=== PATIENT | female | born 2000 | race African-American/Black ===

== ENCOUNTER 2020-10-30 08:26 | Emergency (ER) | payer MEDICAID, SELFPAY ==
--- NOTE | 2020-10-30 08:38 | ED.GENADULT ---
HPI - General Adult General Chief complaint: General Medical Stated complaint: Pregancy test? Time Seen by Provider: 10/30/20 08:34 Source: patient Mode of arrival: ambulatory Limitations: no limitations History of Present Illness MD complaint: positive test at home Onset (ago): week(s) (in the last week or so) Relieving factors: none Exacerbating factors: none Associated symptoms: nausea/vomiting Treatments prior to arrival: other (taking prenatals at home) Related Data Previous Rx's Medication Instructions Recorded doxylamine succinate 25 mg PO BID PRN #30 tab 10/30/20 pyridoxine (vitamin B6) 25 mg PO BID PRN #30 tab 10/30/20 Allergies Allergy/AdvReac Type Severity Reaction Status Date / Time No Known Allergies Allergy Verified 10/30/20 08:50 Review of Systems Review of Systems: Constitutional : No Fever, No Chills ENT/Mouth : No sore throat, No Rhinorrhea Eyes: No Eye Pain, No Swelling, No Redness Cardiovascular : No Chest Pain, No SOB Respiratory : No Cough, No Sputum, No Wheezing Gastrointestinal : pos Nausea, No Vomiting, no abdominal pain Genitourinary : No Dysuria, No Urinary Frequency, No Hematuria, no bleeding, late on menses Musculoskeletal : No joint pain, No Myalgias, No Joint Swelling Skin : No Skin Lesions, No rash Neuro : No Weakness, No Numbness, No Dizziness, No Headache PMFSH Past Medical History Attestation statement: The following information was validated with the patient. Medical History Heart murmur Social History Social History (Updated 10/30/20 @ 08:58 by Yoli Tomas DO) Patient Tobacco Use Status: Former Tobacco user Advance Directives: No Advance Directives Information Provided: No Physical Exam Vital Signs: Vital Signs: Last Vital Signs Temp 97.6 F 10/30/20 08:48 Pulse 76 10/30/20 08:48 Resp 14 10/30/20 08:48 BP 124/75 10/30/20 08:48 Pulse Ox 100 10/30/20 08:48 Body Mass Index 27.4 Appearance: Alert. Oriented X3. No acute distress. Eyes: Pupils equal, round and reactive to light. ENT: Pharynx normal. Neck: Normal inspection. Neck supple. CVS: Pulses normal. Respiratory: Breath sounds normal. Abdomen: Soft and non-tender. Skin: Skin warm and dry. Normal skin color. Extremities: No lower extremity edema. Neuro: Oriented X 3. No motor deficit. No sensory deficit. Procedures Procedure Narrative Procedure Narrative: limited transabdominal US performed by me - gestational sac seen no pole Medical Decision Making MDM Narrative Medical decision making narrative: 20 yo female pos tests at home - came in with no complaints other than wanted hcg serum testing because there is a family histor of twins, I told he she is very early in her and that one hcg level is not going to provide us more information at this time or dx her with twins, she can follow up with her OBGYN, no bleeding/pain Discharge Plan Discharge Clinical Impression: Early stage of Patient Disposition: Home, Self-Care Instructions: (ED) Additional Instructions: return to ED for any worsening symptoms or concerns please call your OBGYN Prescriptions: New pyridoxine (vitamin B6) 25 mg tablet 25 mg PO BID PRN (Reason: nausea and vomiting) Qty: 30 RF: 0 doxylamine succinate 25 mg tablet 25 mg PO BID PRN (Reason: nausea and vomiting) Qty: 30 RF: 0
[2020-10-30 08:48] VITALS: BP 124/75; PULSE 76; RESP 14; TEMP 36.4; O2SAT 100; BMI 27.4
[2020-10-30 08:59] LABS: UPreg QC Valid YES; Urine Pregnancy POSITIVE (NEGATIVE)
[2020-10-30 09:13] LABS: Appearance Urine HAZY; Color Urine YELLOW; Glucose Urine UA NEG (NEG); Leukocyte Esterase Urine NEG (NEG); Nitrite Urine NEG (NEG); Specific Gravity - Urine 1.025 (1.005-1.025); Urine Blood NEG (NEG); Urine Ketones NEG (NEG); Urine Protein NEG (NEG-TRACE)
== END 2020-10-30 09:21 | disposition home or self-care (01) ==
PROVIDERS: Emergency Provider Emergency Medicine
DX: Z32.01 Encounter for pregnancy test, result positive (principal)
CPT/HCPCS: 81003; 81025; 99283

== ENCOUNTER 2021-01-18 05:56 | Emergency (ER) | payer MEDICAID, SELFPAY ==
[2021-01-18 06:10] VITALS: BP 130/89; PULSE 93; RESP 16; TEMP 36.7; O2SAT 99; BMI 27.4
== END 2021-01-18 06:45 | disposition left against medical advice (07) ==
PROVIDERS: Emergency Provider Emergency Medicine
DX: M54.50 Low back pain, unspecified (principal)
CPT/HCPCS: 99281; 99282

== ENCOUNTER 2021-06-01 09:20 | Emergency (ER) | payer MEDICAID, SELFPAY ==
--- NOTE | ~2021-06-01 | US_ITS ---
EXAMINATION: US PELVIS TRANSVAGINAL CLINICAL INFORMATION: Pain and bleeding COMPARISON: October 02, 2019 TECHNIQUE: Transcutaneous and transvaginal pelvic ultrasound. Transvaginal scanning was performed after voiding to better evaluate the endometrium and adnexa. FINDINGS: Patient had difficulty tolerating the transvaginal exam due to pain. Right ovary could not be seen transvaginally. The uterus measures 7.6 x 3.8 x 5.8 cm. The uterus is anteverted and anteflexed.. No suspicious abnormalities region of the cervix. The uterine contour is smooth. The endometrium measures 0.8 cm. No focal abnormalities within the myometrium. The right ovary measures approximately 2.7 x 1.1 x 1.9 cm. The calculated right ovarian volume is approximately 3.0 mL. No right adnexal abnormality appreciated. The left ovary measures 2.8 x 1.4 x 1.5 cm. The calculated left ovarian volume is approximately 3.1 mL. No left adnexal abnormality appreciated No significant free pelvic fluid. US/US pelvic and transvaginal IMPRESSION: No significant abnormality appreciated on pelvic ultrasound study.
[2021-06-01 09:34] VITALS: BP 148/82; PULSE 86; RESP 16; TEMP 36.6; O2SAT 99; BMI 27.9
--- NOTE | 2021-06-01 09:58 | ED.ABDPAIN ---
HPI - Abdominal Pain General Chief Complaint: Abdominal Pain Stated Complaint: abd pain Time Seen by Provider: 06/01/21 09:46 Source: patient Mode of arrival: ambulatory Limitations: no limitations History of Present Illness MD elicited complaint: abdominal pain (pelvic pain and vaginal bleeding) Pertinent past history: none Onset (ago): day(s) (Sunday night) Pain Consistency: intermittent Location: pelvis Severity: moderate Quality: cramping Radiation: none Migration to: no migration Exacerbating factors: nothing Relieving factors: nothing Context: other (LMP end of April and started bleeding again - she notes has had hx of intermittent bleeding in the past has not seen OBGYN) Associated symptoms: nausea Related Data Previous Rx's Medication Instructions Recorded doxylamine succinate 25 mg tablet 25 mg PO BID PRN #30 tab 10/30/20 pyridoxine (vitamin B6) 25 mg 25 mg PO BID PRN #30 tab 10/30/20 tablet Allergies Allergy/AdvReac Type Severity Reaction Status Date / Time No Known Allergies Allergy Verified 01/18/21 06:10 Review of Systems Review of Systems Constitutional : No Fever, No Chills ENT/Mouth : No sore throat, No Rhinorrhea Eyes: No Eye Pain, No Redness Cardiovascular : No Chest Pain, No SOB Respiratory : No Cough, No Sputum, No Wheezing Gastrointestinal : positive Nausea, No Vomiting, No Diarrhea, positive abdominal pain, Genitourinary : positive irregular bleeding, No Dysuria, No Urinary Frequency, positive pelvic pain Musculoskeletal : No Myalgias Skin : No rash Neuro : No Weakness, No Headache Psych : No Anxiety/Panic, No Depression Heme/Lymph: No bruising, No Lymphadenopathy Endocrine : No Polyuria, No Polydipsia All other systems reviewed and are negative [facility] Past Medical History Attestation statement: The following information was validated with the patient. Medical History Heart murmur Miscarriage Social History Social History Patient Tobacco Use Status: Former Tobacco user Advance Directives: No Advance Directives Information Provided: No Physical Exam ED Vital Signs: Vital Signs - 24 hr 06/01/21 09:34 06/01/21 12:12 06/01/21 13:29 Temperature 98 F 98.9 F 98.9 F Pulse Rate 86 76 71 Respiratory Rate 16 14 16 Blood Pressure 148/82 H 124/74 117/72 Pulse Oximetry 99 100 100 BMI result Body Mass Index 27.9 Appearance: Alert. Oriented X3. No acute distress. Anxious Eyes: Pupils equal, round and reactive to light. ENT: Pharynx normal. Neck: Normal inspection. Neck supple. CVS: Normal heart rate and rhythm. Pulses normal. Respiratory: No respiratory distress. Breath sounds normal. Abdomen: Soft and nontender. : patient declines pelvic exam no bleeding here Skin: Skin warm and dry. Normal skin color. Normal skin turgor. Extremities: No lower extremity edema. No calf ttp Neuro: Oriented X 3. No motor deficit. No sensory deficit. Course Course Course Narrative: H/H stable US normal MDM - Abdominal Pain MDM Narrative Medical decision making narrative: 21 yo female here with c/o pelvic pain and vag bleeding since Sunday at this time she denies OCP use, no vaginal trauma notes this has happened at times since a miscarriage in summer of 2020 - at this time she will need labs, hcg, UA, US to evaluate uterus, IVF and IV ativan - she is very anxious. Dispo per results and findings. Lab Data Result diagrams: 06/01/21 10:06 06/01/21 10:06 Labs: Lab Results 06/01/21 06/01/21 06/01/21 Range/Units 10:06 10:06 10:06 WBC 4.1 L (4.8-10.8) X10*3/uL RBC 4.71 (4.20-5.50) X10*6/uL Hgb 14.4 (12.0-16.0) g/dl Hct 42.2 (37.0-47.0) % MCV 89.6 (80.0-98.0) fL MCH 30.6 (27.0-33.0) pg MCHC 34.1 (31.0-35.0) g/dl RDW 12.1 (11.0-16.0) % Plt Count 320 (160-400) X10*3/uL MPV 9.1 L (9.4-12.3) fL Immature Gran % (Auto) 0.2 (0.0-0.4) % Neut % (Auto) 55.9 (45-73) % Lymph % (Auto) 35.3 (20-40) % [place] % (Auto) 7.7 (2-11) % Eos % (Auto) 0.2 (0-4) % Baso % (Auto) 0.7 (0-2) % Lymph # (Auto) 1.5 (1.2-4.9) X10*3/uL [place] # (Auto) 0.3 (0.1-1.2) X10*3/uL Eos # (Auto) 0.0 (0.0-0.4) X10*3/uL Baso # (Auto) 0.0 (0.0-0.2) X10*3/uL Abs Immat Gran (auto) 0.01 (0.00-0.03) X10*3/uL Absolute Neuts (auto) 2.3 (2.0-8.3) x10*3/uL Absolute Nucleated RBC 0.000 (0.0-0.012) X10*3/uL Nucleated RBC % (auto) 0.0 (0.0-0.2) /100WBC PT 12.5 (9.9-13.0) SEC INR 1.1 (0.9-1.1) Sodium 137 (135-145) mmol/L Potassium 4.2 (3.3-5.1) mmol/L Chloride 107 (96-108) mmol/L Carbon Dioxide 24 (22-29) mmol/L Anion Gap 10 L (12-20) BUN 10 (9-16) mg/dL Creatinine 0.78 (0.5-1.4) mg/dL Estim Creat Clear Calc 110.3 Estimated GFR > 60 Random Glucose 86 (60-115) mg/dL Calcium 10.0 (8.4-10.2) mg/dL Magnesium 2.1 (1.6-2.6) mg/dL Total Bilirubin 1.1 H (0.0-1.0) mg/dL Direct Bilirubin 0.4 (0.0-0.5) mg/dL AST 21 (5-31) U/L ALT 8 (0-31) U/L Alkaline Phosphatase 60 (39-117) U/L Total Protein 8.1 H (6.5-8.0) g/dL Albumin 4.6 (3.5-5.0) g/dL Beta HCG, Quant < 2 mIU/mL Urine Color Urine Appearance Urine pH (5.0-8.0) Ur Specific [place] (1.005-1.025) Urine Protein (NEG-TRACE) MG/DL Urine Glucose (UA) (NEG) MG/DL Urine Ketones (NEG) MG/DL Urine Blood (NEG) Urine Nitrite (NEG) Ur Leukocyte Esterase (NEG) Urine RBC (0) /HPF Urine WBC (0-4) /HPF Ur Squamous Epith Cells /LPF Urine Bacteria /LPF Blood Type 06/01/21 06/01/21 Range/Units 10:06 11:20 WBC (4.8-10.8) X10*3/uL RBC (4.20-5.50) X10*6/uL Hgb (12.0-16.0) g/dl Hct (37.0-47.0) % MCV (80.0-98.0) fL MCH (27.0-33.0) pg MCHC (31.0-35.0) g/dl RDW (11.0-16.0) % Plt Count (160-400) X10*3/uL MPV (9.4-12.3) fL Immature Gran % (Auto) (0.0-0.4) % Neut % (Auto) (45-73) % Lymph % (Auto) (20-40) % [place] % (Auto) (2-11) % Eos % (Auto) (0-4) % Baso % (Auto) (0-2) % Lymph # (Auto) (1.2-4.9) X10*3/uL [place] # (Auto) (0.1-1.2) X10*3/uL Eos # (Auto) (0.0-0.4) X10*3/uL Baso # (Auto) (0.0-0.2) X10*3/uL Abs Immat Gran (auto) (0.00-0.03) X10*3/uL Absolute Neuts (auto) (2.0-8.3) x10*3/uL Absolute Nucleated RBC (0.0-0.012) X10*3/uL Nucleated RBC % (auto) (0.0-0.2) /100WBC PT (9.9-13.0) SEC INR (0.9-1.1) Sodium (135-145) mmol/L Potassium (3.3-5.1) mmol/L Chloride (96-108) mmol/L Carbon Dioxide (22-29) mmol/L Anion Gap (12-20) BUN (9-16) mg/dL Creatinine (0.5-1.4) mg/dL Estim Creat Clear Calc Estimated GFR Random Glucose (60-115) mg/dL Calcium (8.4-10.2) mg/dL Magnesium (1.6-2.6) mg/dL Total Bilirubin (0.0-1.0) mg/dL Direct Bilirubin (0.0-0.5) mg/dL AST (5-31) U/L ALT (0-31) U/L Alkaline Phosphatase (39-117) U/L Total Protein (6.5-8.0) g/dL Albumin (3.5-5.0) g/dL Beta HCG, Quant mIU/mL Urine Color HEDY Urine Appearance CLOUDY Urine pH 5.0 (5.0-8.0) Ur Specific [place] 1.015 (1.005-1.025) Urine Protein 1+ H (NEG-TRACE) MG/DL Urine Glucose (UA) NEG (NEG) MG/DL Urine Ketones 5 (NEG) MG/DL Urine Blood 3+ H (NEG) Urine Nitrite NEG (NEG) Ur Leukocyte Esterase NEG (NEG) Urine RBC TNTC H (0) /HPF Urine WBC 0-2 (0-4) /HPF Ur Squamous Epith Cells 2+ /LPF Urine Bacteria TRACE /LPF Blood Type O Positive Discharge Plan Discharge Clinical Impression: Abnormal vaginal bleeding Patient Disposition: Home, Self-Care Instructions: Dysfunctional Uterine Bleeding (ED) Additional Instructions: return to ED for any worsening symptoms or concerns US normal labs stable The uterus measures 7.6 x 3.8 x 5.8 cm. The uterus is anteverted and anteflexed.. No suspicious abnormalities region of the cervix. The uterine contour is smooth. The endometrium measures 0.8 cm. No focal abnormalities within the myometrium. The right ovary measures approximately 2.7 x 1.1 x 1.9 cm. The calculated right ovarian volume is approximately 3.0 mL. No right adnexal abnormality appreciated. The left ovary measures 2.8 x 1.4 x 1.5 cm. The calculated left ovarian volume is approximately 3.1 mL. No left adnexal abnormality appreciated No significant free pelvic fluid. US/US pelvic and transvaginal IMPRESSION: No significant abnormality appreciated on pelvic ultrasound study. Prescriptions: No Action pyridoxine (vitamin B6) 25 mg tablet 25 mg PO BID PRN (Reason: nausea and vomiting) Qty: 30 0RF doxylamine succinate 25 mg tablet 25 mg PO BID PRN (Reason: nausea and vomiting) Qty: 30 0RF Referrals: Bruno Osborn MD [Physician] - 1 week Stand Alone Forms: Work/School Release
[2021-06-01] MEDS: ondansetron HCL 4 MG/2 ML VIAL IVPUSH (10:09)
[2021-06-01] MEDS: LORazepam 2 MG/ML VIAL 0.5 MG IVPUSH (10:09)
[2021-06-01] MEDS: 0.9 % Sodium Chloride 1,000 ML 999 ML IVCONT (10:10)
[2021-06-01 10:13] LABS: MANUAL DIFF FLAG NO
[2021-06-01 10:16] LABS: Appearance Urine CLOUDY; Basophils Percent Auto 0.7 % (0-2); Eosinophils Percent Auto 0.2 % (0-4); Glucose Urine UA NEG (NEG); Hematocrit 42.2 % (37.0-47.0); Hemoglobin 14.4 g/dl (12.0-16.0); Imm Gran Abs Auto 0.01 X10*3/uL (0.00-0.03); Imm Gran Pct Auto 0.2 % (0.0-0.4); Leukocyte Esterase Urine NEG (NEG); Lymphocytes Absolute Auto 1.5 X10*3/uL (1.2-4.9); Lymphocytes Percent Auto 35.3 % (20-40); Mean Corpuscular HGB Conc 34.1 g/dl (31.0-35.0); Mean Corpuscular Hemoglobin 30.6 pg (27.0-33.0); Mean Corpuscular Volume 89.6 fL (80.0-98.0); Mean Platelet Volume 9.1 fL (9.4-12.3); Monocytes Absolute Auto 0.3 X10*3/uL (0.1-1.2); Monocytes Percent Auto 7.7 % (2-11); Neutrophils Absolute Auto 2.3 x10*3/uL (2.0-8.3); Neutrophils Percent Auto 55.9 % (45-73); Nitrite Urine NEG (NEG); Platelet Count 320 X10*3/uL (160-400); Red Blood Count 4.71 X10*6/uL (4.20-5.50); Red Cell Distribution Width 12.1 % (11.0-16.0); Specific Gravity - Urine 1.015 (1.005-1.025); UACC Culture Trigger NO; Urine Blood 3+ (NEG); Urine Ketones 5 MG/DL (NEG); Urine Protein 1+ MG/DL (NEG-TRACE); White Blood Count 4.1 X10*3/uL (4.8-10.8)
[2021-06-01 10:17] LABS: Color Urine AMBER
[2021-06-01 10:20] LABS: INTERNATIONAL NORM RATIO 1.1 (0.9-1.1); Prothrombin Time 12.5 SEC (9.9-13.0)
[2021-06-01 10:22] LABS: RBC Urine TNTC /HPF (0); Squamous Epithelial Cell Urine 2+ /LPF; WBC Urine 0-2 /HPF (0-4)
[2021-06-01 10:23] LABS: Bacteria Urine TRACE /LPF
[2021-06-01 10:34] LABS: Alanine Aminotransferase 8 U/L (0-31); Albumin Level 4.6 g/dL (3.5-5.0); Alkaline Phosphatase 60 U/L (39-117); Anion Gap 10 (12-20); Aspartate Amino Transferase 21 U/L (5-31); Bilirubin Direct 0.4 mg/dL (0.0-0.5); Bilirubin Total 1.1 mg/dL (0.0-1.0); Blood Urea Nitrogen 10 mg/dL (9-16); Carbon Dioxide 24 mmol/L (22-29); Chloride 107 mmol/L (96-108); Creatinine Clr Calc Pharmacy 110.3; Estimated Glomerular Filt Rate > 60; Glucose Random 86 mg/dL (60-115); Magnesium 2.1 mg/dL (1.6-2.6); Potassium 4.2 mmol/L (3.3-5.1); Sodium 137 mmol/L (135-145); Total Protein 8.1 g/dL (6.5-8.0)
[2021-06-01 10:41] LABS: HCG Quantitative < 2 mIU/mL
[2021-06-01 12:12] VITALS: BP 124/74; PULSE 76; RESP 14; TEMP 37.2; O2SAT 100
[2021-06-01 13:29] VITALS: BP 117/72; PULSE 71; RESP 16; TEMP 37.2; O2SAT 100
== END 2021-06-01 13:56 | disposition home or self-care (01) ==
PROVIDERS: Emergency Provider Emergency Medicine
DX: N93.9 Abnormal uterine and vaginal bleeding, unspecified (principal); R10.9 Unspecified abdominal pain
CPT/HCPCS: 36415; 76830; 76856; 80048; 80076; 81001; 83735; 84702; 85025; 85610; 86900; 86901; 96361; 96374; 96375; 99284; J2060; J2405

== ENCOUNTER 2021-09-02 07:16 | Emergency (ER) | payer MEDICAID, SELFPAY ==
[2021-09-02 07:38] VITALS: BP 109/72; PULSE 70; RESP 18; TEMP 36.5; O2SAT 98; BMI 25.2
[2021-09-02 08:09] VITALS: BP 112/73; PULSE 94; RESP 16; O2SAT 100
--- NOTE | 2021-09-02 08:10 | ED.GENADULT ---
HPI - General Adult General Chief complaint: Abdominal Pain Stated complaint: Abd pain Time Seen by Provider: 09/02/21 08:10 Source: patient Mode of arrival: ambulatory Limitations: no limitations History of Present Illness HPI narrative: Patient is a 21 year old female presenting to the emergency department today with generalized abdominal pain. Patient states that she is having a cramping type pain across her abdomen. Patient denies any vaginal bleeding, vaginal discharge, dizziness, lightheadedness, vomiting, fever, chills, blurry vision, double vision, loss of vision, chest pain, difficulty breathing, shortness of breath, back pain, night sweats, pain with urination, increased urinary frequency, increased urinary urgency, blood in her urine or stool, syncope or a near syncopal episode, recent trauma or falls, bowel incontinence, bladder incontinence, bowel retention, bladder retention, or any other complaints at this time. Onset (ago): day(s) Location: abdomen Radiation: non-radiation Severity: mild Severity scale (1-10): 2 Quality: dull Pain Consistency: constant Relieving factors: none Exacerbating factors: none Associated symptoms: nausea/vomiting Treatments prior to arrival: none Related Data Previous Rx's Medication Instructions Recorded doxylamine succinate 25 mg tablet 25 mg PO BID PRN #30 tab 10/30/20 pyridoxine (vitamin B6) 25 mg 25 mg PO BID PRN #30 tab 10/30/20 tablet acetaminophen 500 mg tablet 500 mg PO Q6H PRN #30 tab 09/02/21 (Tylenol Extra Strength) Allergies Allergy/AdvReac Type Severity Reaction Status Date / Time No Known Allergies Allergy Verified 01/18/21 06:10 Review of Systems Constitutional: Constitutional: Reports no additional constitutional complaints, Denies chills, Denies fever(s) and Denies night sweats Eyes: Eyes: Reports no additional eye complaints, Denies blurry vision, Denies change in vision, Denies diplopia, Denies eye discharge, Denies loss of vision and Denies eye pain ENT: Denies dizziness Cardiovascular: Cardiovascular: Reports no additional cardiovascular complaints, Denies chest pain, Denies lightheadedness, Denies Loss of Consciousness and Denies dyspnea Respiratory: Respiratory: Reports no additional respiratory complaints and Denies dyspnea Gastrointestinal: Gastrointestinal: Reports no additional gastrointestinal complaints, Reports abdominal pain, Denies melena, Denies hematochezia, Denies change in bowel habits and Denies change in stool character Genitourinary: Genitourinary: Denies hematuria, Denies urinary frequency, Denies dysuria, Denies urinary incontinence, Denies urinary hesitancy and Denies urinary urgency Musculoskeletal: Musculoskeletal: Reports no additional musculoskeletal complaints, Denies numbness and Denies tingling Neurologic: Denies dizziness, Denies loss of vision, Denies numbness and Denies tingling Psychiatric: Psychiatric: Reports no additional psychiatric complaints Endocrine: Endocrine: Reports no additional endocrine complaints Hematologic/Lymphatic: Hematologic/Lymphatic: Reports no additional hematologic/lymphatic complaints Allergic/Immunologic: Allergic/Immunologic: Reports no additional allergic/immunologic complaints PMFSH Past Medical History Attestation statement: The following information was validated with the patient. Source: old records reviewed Medical History Heart murmur Miscarriage Social History Social History Patient Tobacco Use Status: Former Tobacco user Advance Directives: No Advance Directives Information Provided: No Physical Exam ED Vital Signs: Vital Signs - 24 hr 09/02/21 07:38 09/02/21 08:09 09/02/21 10:03 Temperature 97.7 F 98.8 F Pulse Rate 70 94 Respiratory Rate 18 16 16 Blood Pressure 109/72 112/73 121/73 Pulse Oximetry 98 100 100 BMI result Body Mass Index 25.2 Const General: cooperative, no acute distress, alert and awake Nutritional Appearance: well nourished Orientation/consciousness: patient oriented x3 Limitations: no limitations [facility] Head: Yes normal to inspection and Yes atraumatic Ears: hearing grossly normal bilaterally and external ears normal General nose exam: Normal external nose present, no nasal discharge noted and no epistaxis Face and sinus: Yes normal facial exam, No abrasion and No laceration Mouth: Normal oral and palatal mucosa present, no drooling and no muffled voice Eyes General: appearance normal, both eyes and all related structures Periorbital: periorbital findings normal Eyelids: Yes eyelids normal Conjunctivae: conjunctivae normal Pupils: Equal, round and reactive pupils present EOM: EOMs intact bilaterally Neck Neck: Yes normal visual inspection, Yes full ROM and Yes no lymphadenopathy Chest Chest palpation & inspection: normal inspection of the chest Resp Effort & Inspection: normal respiratory effort and able to speak in complete sentences Auscultation: clear to auscultation bilaterally Cardio Rate: regular rate Rhythm: regular rhythm GI Inspection: Yes normal to inspection Palpation (GI): Soft to palpation, not firm, nontender and no guarding Neuro General: patient oriented x3 and moves all extremities Cranial nerves: Yes Equal, round and reactive pupils present Cognition (Neuro): normal cognition Motor exam (neuro): 5/5 motor strength present throughout Sensory Exam: Normal double simultaneous stimulation for sensation Coordination: [id number] test normal Extrem General: Yes normal to inspection, Yes full ROM and Yes capillary refill normal Psych Appearance: grossly normal Mental Status: mental status grossly normal Affect: normal affect Attitude: cooperative Thought process: Normal thought process present Thought content: Normal thought content present Insight: Good insight present (Psych) Medical Decision Making MDM Narrative Medical decision making narrative: Patient is a 21 year old female presenting to the emergency department today with generalized abdominal pain. Patient's physical exam was unremarkable, including a normal abdominal examination. Patient's blood work was unremarkable. Patient's urine showed no acute process. I explained my physical exam findings as well as all test results to the patient. I answered all questions asked by the patient. I stressed the importance of the patient taking her medication as prescribed. I stressed the importance of the patient following up with her primary care provider and a GI specialist. I stressed the importance of the patient returning to the emergency department immediately if her symptoms were to worsen or if she were to develop any dizziness, shortness of breath, difficulty breathing, chest pain, blurry vision, loss of vision, nausea, vomiting, abdominal pain, fever, chills, back pain, or any other complaints. Patient verbalized agreement and understanding with this treatment plan and discharge. Differential Diagnosis Differential Diagnosis: Gastritis, gastroenteritis, abdominal pain Medical Records Medical records reviewed: Yes I reviewed the patient's medical records. Lab Data Lab results reviewed: Yes I reviewed the patient's lab results. Result diagrams: 09/02/21 08:23 09/02/21 08:23 Labs: Lab Results 09/02/21 09/02/21 09/02/21 Range/Units 08:17 08:17 08:19 WBC (4.8-10.8) X10*3/uL RBC (4.20-5.50) X10*6/uL Hgb (12.0-16.0) g/dl Hct (37.0-47.0) % MCV (80.0-98.0) fL MCH (27.0-33.0) pg MCHC (31.0-35.0) g/dl RDW (11.0-16.0) % Plt Count (160-400) X10*3/uL MPV (9.4-12.3) fL Immature Gran % (Auto) (0.0-0.4) % Neut % (Auto) (45-73) % Lymph % (Auto) (20-40) % [place] % (Auto) (2-11) % Eos % (Auto) (0-4) % Baso % (Auto) (0-2) % Lymph # (Auto) (1.2-4.9) X10*3/uL [place] # (Auto) (0.1-1.2) X10*3/uL Eos # (Auto) (0.0-0.4) X10*3/uL Baso # (Auto) (0.0-0.2) X10*3/uL Abs Immat Gran (auto) (0.00-0.03) X10*3/uL Absolute Neuts (auto) (2.0-8.3) x10*3/uL Absolute Nucleated RBC (0.0-0.012) X10*3/uL Nucleated RBC % (auto) (0.0-0.2) /100WBC Sodium (135-145) mmol/L Potassium (3.3-5.1) mmol/L Chloride (96-108) mmol/L Carbon Dioxide (22-29) mmol/L Anion Gap (12-20) BUN (9-16) mg/dL Creatinine (0.5-1.4) mg/dL Estim Creat Clear Calc Estimated GFR Random Glucose (60-115) mg/dL Calcium (8.4-10.2) mg/dL Total Bilirubin (0.0-1.0) mg/dL AST (5-31) U/L ALT (0-31) U/L Alkaline Phosphatase (39-117) U/L Total Protein (6.5-8.0) g/dL Albumin (3.5-5.0) g/dL Lipase (8-78) U/L Beta HCG, Quant mIU/mL Urine Color YELLOW Urine Appearance HAZY Urine pH 6.0 (5.0-8.0) Ur Specific [place] >= 1.030 H (1.005-1.025) Urine Protein NEG (NEG-TRACE) MG/DL Urine Glucose (UA) NEG (NEG) MG/DL Urine Ketones NEG (NEG) MG/DL Urine Blood NEG (NEG) Urine Nitrite NEG (NEG) Ur Leukocyte Esterase NEG (NEG) COVID-19 (LEAH) Negative (Negative) COVID-19 Clin Com See Note Influenza Type A (LEILA) Negative (Negative) Influenza Type B (LEILA) Negative (Negative) Influenza A & B Note See Note 09/02/21 09/02/21 Range/Units 08:23 08:23 WBC 3.9 L (4.8-10.8) X10*3/uL RBC 4.39 (4.20-5.50) X10*6/uL Hgb 13.3 (12.0-16.0) g/dl Hct 39.6 (37.0-47.0) % MCV 90.2 (80.0-98.0) fL MCH 30.3 (27.0-33.0) pg MCHC 33.6 (31.0-35.0) g/dl RDW 12.1 (11.0-16.0) % Plt Count 253 (160-400) X10*3/uL MPV 9.6 (9.4-12.3) fL Immature Gran % (Auto) 0.5 H (0.0-0.4) % Neut % (Auto) 53.5 (45-73) % Lymph % (Auto) 34.6 (20-40) % [place] % (Auto) 10.1 (2-11) % Eos % (Auto) 0.8 (0-4) % Baso % (Auto) 0.5 (0-2) % Lymph # (Auto) 1.3 (1.2-4.9) X10*3/uL [place] # (Auto) 0.4 (0.1-1.2) X10*3/uL Eos # (Auto) 0.0 (0.0-0.4) X10*3/uL Baso # (Auto) 0.0 (0.0-0.2) X10*3/uL Abs Immat Gran (auto) 0.02 (0.00-0.03) X10*3/uL Absolute Neuts (auto) 2.1 (2.0-8.3) x10*3/uL Absolute Nucleated RBC 0.000 (0.0-0.012) X10*3/uL Nucleated RBC % (auto) 0.0 (0.0-0.2) /100WBC Sodium 136 (135-145) mmol/L Potassium 4.4 (3.3-5.1) mmol/L Chloride 107 (96-108) mmol/L Carbon Dioxide 23 (22-29) mmol/L Anion Gap 10 L (12-20) BUN 10 (9-16) mg/dL Creatinine 0.80 (0.5-1.4) mg/dL Estim Creat Clear Calc 102.7 Estimated GFR > 60 Random Glucose 92 (60-115) mg/dL Calcium 9.2 D (8.4-10.2) mg/dL Total Bilirubin 0.7 (0.0-1.0) mg/dL AST 19 (5-31) U/L ALT 12 (0-31) U/L Alkaline Phosphatase 58 (39-117) U/L Total Protein 7.0 (6.5-8.0) g/dL Albumin 4.0 (3.5-5.0) g/dL Lipase 21 (8-78) U/L Beta HCG, Quant < 2 mIU/mL Urine Color Urine Appearance Urine pH (5.0-8.0) Ur Specific [place] (1.005-1.025) Urine Protein (NEG-TRACE) MG/DL Urine Glucose (UA) (NEG) MG/DL Urine Ketones (NEG) MG/DL Urine Blood (NEG) Urine Nitrite (NEG) Ur Leukocyte Esterase (NEG) COVID-19 (LEAH) (Negative) COVID-19 Clin Com Influenza Type A (LEILA) (Negative) Influenza Type B (LEILA) (Negative) Influenza A & B Note Discharge Plan Discharge Clinical Impression: Gastroenteritis Patient Disposition: Home, Self-Care Instructions: Gastroenteritis (DC) Additional Instructions: Follow up with your primary care provider and a GI specialist. Return to the emergency department immediately if your symptoms worsen or if you develop any dizziness, shortness of breath, difficulty breathing, chest pain, blurry vision, loss of vision, nausea, vomiting, abdominal pain, fever, chills, back pain, or any other complaints. Prescriptions: New acetaminophen [Tylenol Extra Strength] 500 mg tablet 500 mg PO Q6H PRN (Reason: fever or pain) Qty: 30 0RF No Action pyridoxine (vitamin B6) 25 mg tablet 25 mg PO BID PRN (Reason: nausea and vomiting) Qty: 30 0RF doxylamine succinate 25 mg tablet 25 mg PO BID PRN (Reason: nausea and vomiting) Qty: 30 0RF Referrals: [facility] Gastro[facility]ology Services [Provider Group] (Call to schedule with a GI specialist. ) [facility] [place] Family Medicine [Provider Group] (Call to establish with a PCP. If you already have a PCP, follow up with them. ) [facility] [Provider Group] (Call to establish with a PCP. If you already have a PCP, follow up with them. ) [facility] [place] Primary Care,Deshawn [Provider Group] (Call to establish with a PCP. If you already have a PCP, follow up with them. ) Stand Alone Forms: Work/School Release Print Language: Korean
[2021-09-02 08:28] LABS: MANUAL DIFF FLAG NO
[2021-09-02 08:33] LABS: Basophils Percent Auto 0.5 % (0-2); Eosinophils Percent Auto 0.8 % (0-4); Hematocrit 39.6 % (37.0-47.0); Hemoglobin 13.3 g/dl (12.0-16.0); Imm Gran Abs Auto 0.02 X10*3/uL (0.00-0.03); Imm Gran Pct Auto 0.5 % (0.0-0.4); Lymphocytes Absolute Auto 1.3 X10*3/uL (1.2-4.9); Lymphocytes Percent Auto 34.6 % (20-40); Mean Corpuscular HGB Conc 33.6 g/dl (31.0-35.0); Mean Corpuscular Hemoglobin 30.3 pg (27.0-33.0); Mean Corpuscular Volume 90.2 fL (80.0-98.0); Mean Platelet Volume 9.6 fL (9.4-12.3); Monocytes Absolute Auto 0.4 X10*3/uL (0.1-1.2); Monocytes Percent Auto 10.1 % (2-11); Neutrophils Absolute Auto 2.1 x10*3/uL (2.0-8.3); Neutrophils Percent Auto 53.5 % (45-73); Platelet Count 253 X10*3/uL (160-400); Red Blood Count 4.39 X10*6/uL (4.20-5.50); Red Cell Distribution Width 12.1 % (11.0-16.0); White Blood Count 3.9 X10*3/uL (4.8-10.8)
[2021-09-02 08:34] LABS: Appearance Urine HAZY; Color Urine YELLOW; Glucose Urine UA NEG (NEG); Leukocyte Esterase Urine NEG (NEG); Nitrite Urine NEG (NEG); Specific Gravity - Urine >= 1.030 (1.005-1.025); Urine Blood NEG (NEG); Urine Ketones NEG (NEG); Urine Protein NEG (NEG-TRACE)
[2021-09-02 08:43] LABS: COVID-19 Test Negative (Negative)
[2021-09-02 08:44] LABS: IDNOW Serial# 16C4AD1C; Influenza A Negative (Negative); Influenza B2 Negative (Negative)
[2021-09-02 08:45] LABS: Lipase 21 U/L (8-78)
[2021-09-02 08:52] LABS: HCG Quantitative < 2 mIU/mL
[2021-09-02 09:52] LABS: Alanine Aminotransferase 12 U/L (0-31); Alkaline Phosphatase 58 U/L (39-117); Anion Gap 10 (12-20); Aspartate Amino Transferase 19 U/L (5-31); Bilirubin Total 0.7 mg/dL (0.0-1.0); Blood Urea Nitrogen 10 mg/dL (9-16); Calcium 9.2 mg/dL (8.4-10.2); Carbon Dioxide 23 mmol/L (22-29); Chloride 107 mmol/L (96-108); Creatinine Clr Calc Pharmacy 102.7; Estimated Glomerular Filt Rate > 60; Glucose Random 92 mg/dL (60-115); Potassium 4.4 mmol/L (3.3-5.1); Sodium 136 mmol/L (135-145)
[2021-09-02 10:03] VITALS: BP 121/73; RESP 16; TEMP 37.1; O2SAT 100
== END 2021-09-02 10:34 | disposition home or self-care (01) ==
PROVIDERS: Physician Assistant Medical; Emergency Provider Emergency Medicine Emergency Medical Services
DX: K52.9 Noninfective gastroenteritis and colitis, unspecified (principal); Z20.822 Contact with and (suspected) exposure to COVID-19
CPT/HCPCS: 80053; 81003; 83690; 84702; 85025; 87502; 87635; 99283

== ENCOUNTER 2022-03-18 07:02 | Emergency (ER) | payer MEDICAID, SELFPAY ==
--- NOTE | ~2022-03-18 | XR_ITS ---
EXAMINATION: XR CHEST CLINICAL INFORMATION: Cough COMPARISON: None TECHNIQUE: AP portable view of the chest was obtained. FINDINGS: No significant abnormality is noted involving the heart, lungs, mediastinum, bony thorax or soft tissues. XR/XR chest 1V IMPRESSION: No acute disease
--- NOTE | ~2022-03-18 | CT_ITS ---
EXAMINATION: CT ABDOMEN AND PELVIS WITH CONTRAST CLINICAL INFORMATION: Lower abdominal pain COMPARISON: None TECHNIQUE: Multidetector volumetric images were obtained from the superior aspect of the liver through the pubic symphysis following administration 85 mL of Omnipaque 350 intravenous contrast. Sagittal and coronal reformatted images were obtained on the technologist's workstation. Oral contrast: No This CT examination was performed using dose optimization techniques as appropriate, variously including the following: *Automated exposure control *Adjustment of mA and/or kV according to patient size (this includes techniques or standardized protocols for targeted exams where dose is matched to indication/reason for exam; i.e. extremities or head) *Use of iterative reconstruction technique DLP: 433 mGy-cm FINDINGS: Motion degradation limits evaluation of the upper abdomen. LUNG BASES: Unremarkable. ABDOMINAL AND PELVIC WALL: Unremarkable. LIVER AND BILIARY TREE: Unremarkable. GALLBLADDER: Unremarkable. PANCREAS: Unremarkable. SPLEEN: Unremarkable. ADRENAL GLANDS: Unremarkable. KIDNEYS AND URETERS: Unremarkable. GASTROINTESTINAL TRACT: Colonic diverticulosis without evidence of diverticulitis. Normal appendix. VASCULAR: Unremarkable. LYMPH NODES/PERITONEUM: No lymphadenopathy. FREE FLUID: None. BLADDER: Unremarkable. PELVIC VISCERA: Unremarkable. OSSEOUS STRUCTURES: Unremarkable. CT/CT abdomen pelvis w IV con IMPRESSION: Motion degradation limits evaluation of the upper abdomen. With this limitation, no acute findings to explain symptoms of abdominal pain.
[2022-03-18 07:07] VITALS: BP 132/87; PULSE 84; RESP 18; TEMP 36.4; O2SAT 98; BMI 26.2
--- NOTE | 2022-03-18 08:33 | ED_ITS ---
HPI - Abdominal Pain General Chief Complaint: Abdominal Pain Stated Complaint: abd pain Time Seen by Provider: 03/18/22 08:31 Source: patient Mode of arrival: ambulatory Limitations: other (Uncooperative) History of Present Illness HPI narrative: 22 yo female presenting with 1 week of not feeling well. Patient is a poor historian and will not elaborate on her symptoms. She reported to triage that she has been sick for 1 week. She was reporting diffuse lower abdominal pain, sinus pressure, cough and migraines. On interview today patient is not answering questions, she is curled in a ball in the stretcher. She states her abdomen is hurting. She will not elaborate. She states she is on her menses right now, denies any chance of . She states the pain is worse than her usual menstrual cramps. MD elicited complaint: abdominal pain Pertinent past history: none Onset (ago): unknown Related Data Previous Rx's Medication Instructions Recorded doxylamine succinate 25 mg tablet 25 mg PO BID PRN nausea and 10/30/20 vomiting #30 tabs pyridoxine (vitamin B6) 25 mg 25 mg PO BID PRN nausea and 10/30/20 tablet vomiting #30 tabs acetaminophen 500 mg tablet 500 mg PO Q6H PRN fever or pain 09/02/21 (Tylenol Extra Strength) #30 tabs nitrofurantoin 100 mg PO Q12H 5 days #10 caps 03/18/22 monohydrate/macrocrystals 100 mg capsule (Macrobid) Allergies Allergy/AdvReac Type Severity Reaction Status Date / Time No Known Allergies Allergy Verified 03/18/22 07:07 ON LICENSE OF [facility] Past Medical History Medical History Heart murmur Miscarriage Social History Social History Patient Tobacco Use Status: Former Tobacco user Smoked in Last 30 Days: No Use of substances other than those prescribed or required for medical reasons: No Advance Directives: No Advance Directives Information Provided: Yes Physical Exam ED Vital Signs: Vital Signs - 24 hr 03/18/22 07:07 03/18/22 08:41 03/18/22 10:57 Temperature 97.6 F Pulse Rate 84 65 95 Respiratory Rate 18 18 16 Blood Pressure 132/87 126/67 146/95 H Pulse Oximetry 98 99 100 Oxygen Delivery Method Room Air Room Air Room Air BMI result Body Mass Index 26.2 Appearance: 18 something year old female lying on the stretcher, curled in a ball. Eyes: Pupils equal, round and reactive to light. ENT: Pharynx normal. Neck: Normal inspection. Neck supple. CVS: Normal heart rate and rhythm. Pulses normal. Respiratory: No respiratory distress. Breath sounds normal. Abdomen: Soft with lower abdominal tenderness, no rebound or guarding. +BS x4. Pelvic deferred Skin: Skin warm and dry. Normal skin color. Normal skin turgor. No rashes. Extremities: No lower extremity edema. Neuro: Awake and alert, answering questions intermittently, moving all 4 extremities. Poor historian. Course Course Course Narrative: 22-year-old female presents to the ER for evaluation of ?feeling sick for 1 week. ? She is reporting lower abdominal pain. She is on her menses. Denies chance of . Will get lab workup for now. Her abdomen is soft and benign, but she is difficult to get history of physical exam out of. Will get C T scan. Reevaluation(s) Reevaluation #1: Patient's labs are unremarkable. Her urinalysis revealed red urine, she is on her menses. There is large leukocyte esterase and 2+ bacteria. CT scan of her abdomen is unremarkable. Will treat with 5 days of Macrobid for UTI. He is tolerating p.o.. Stable for discharge. Medications Administered Discontinued Medications Generic Name Dose Route Start Last Admin Trade Name Freq PRN Reason Stop Dose Admin Lactated Ringer's 1,000 mls @ 999 mls/hr 03/18/22 08:45 03/18/22 10:26 Lr IV 03/18/22 09:45 Infused .Q1H1M JADE Infusion Iohexol 85 ml 03/18/22 11:39 03/18/22 11:39 Iohexol 350 Mg/Ml 100 Ml Infus..Btl IV 03/18/22 11:40 85 ml ONCE ONE Administration Ketorolac Tromethamine 30 mg 03/18/22 10:40 03/18/22 10:54 Ketorolac Tromethamine 30 Mg/Ml Vial IVPUSH 03/18/22 10:41 30 mg ONCE ONE Administration MDM - Abdominal Pain Lab Data Result diagrams: 03/18/22 08:55 03/18/22 08:55 Labs: Lab Results 03/18/22 03/18/22 03/18/22 Range/Units 08:54 08:55 08:55 WBC 4.6 L (4.8-10.8) X10*3/uL RBC 4.70 (4.20-5.50) X10*6/uL Hgb 14.2 (12.0-16.0) g/dl Hct 41.8 (37.0-47.0) % MCV 88.9 (80.0-98.0) fL MCH 30.2 (27.0-33.0) pg MCHC 34.0 (31.0-35.0) g/dl RDW 11.5 (11.0-16.0) % Plt Count 253 (160-400) X10*3/uL MPV 9.5 (9.4-12.3) fL Immature Gran % (Auto) 0.2 (0.0-0.4) % Neut % (Auto) 41.9 L (45-73) % Lymph % (Auto) 46.4 H (20-40) % [place] % (Auto) 10.4 (2-11) % Eos % (Auto) 0.7 (0-4) % Baso % (Auto) 0.4 (0-2) % Lymph # (Auto) 2.1 (1.2-4.9) X10*3/uL [place] # (Auto) 0.5 (0.1-1.2) X10*3/uL Eos # (Auto) 0.0 (0.0-0.4) X10*3/uL Baso # (Auto) 0.0 (0.0-0.2) X10*3/uL Abs Immat Gran (auto) 0.01 (0.00-0.03) X10*3/uL Absolute Neuts (auto) 1.9 L (2.0-8.3) x10*3/uL Absolute Nucleated RBC 0.000 (0.0-0.012) X10*3/uL Nucleated RBC % (auto) 0.0 (0.0-0.2) /100WBC Sodium 135 (135-145) mmol/L Potassium 3.6 (3.3-5.1) mmol/L Chloride 103 (96-108) mmol/L Carbon Dioxide 25 (22-29) mmol/L Anion Gap 11 L (12-20) BUN 11 (9-16) mg/dL Creatinine 0.82 (0.5-1.4) mg/dL Estim Creat Clear Calc 101.0 Estimated GFR > 60 Random Glucose 91 (60-115) mg/dL Calcium 9.1 (8.4-10.2) mg/dL Total Bilirubin 0.5 (0.0-1.0) mg/dL AST 21 (5-31) U/L ALT 10 (0-31) U/L Alkaline Phosphatase 55 (39-117) U/L Total Protein 7.4 (6.5-8.0) g/dL Albumin 4.3 (3.5-5.0) g/dL Beta HCG, Quant < 2 mIU/mL Urine Color Urine Appearance Urine pH (5.0-9.0) Ur Specific [place] (1.005-1.025) Urine Protein (Neg-Trace) mg/dL Urine Glucose (UA) (Negative) mg/dL Urine Ketones (Negative) mg/dL Urine Blood (Negative) Urine Nitrite (Negative) Ur Leukocyte Esterase (Negative) Urine RBC (0-2) /HPF Urine WBC (0-5) /HPF Ur Squamous Epith Cells (0-2) /HPF Urine Bacteria (None Seen) Hyaline Casts (0-2) /LPF Urine Test (NEGATIVE) Influenza Type A (PCR) NEGATIVE (Negative) Influenza Type B (PCR) NEGATIVE (Negative) RSV RNA Qual (PCR) NEGATIVE (Negative) SARS-CoV-2 RNA (RT-PCR) NEGATIVE (Negative) 03/18/22 03/18/22 Range/Units 11:00 11:00 WBC (4.8-10.8) X10*3/uL RBC (4.20-5.50) X10*6/uL Hgb (12.0-16.0) g/dl Hct (37.0-47.0) % MCV (80.0-98.0) fL MCH (27.0-33.0) pg MCHC (31.0-35.0) g/dl RDW (11.0-16.0) % Plt Count (160-400) X10*3/uL MPV (9.4-12.3) fL Immature Gran % (Auto) (0.0-0.4) % Neut % (Auto) (45-73) % Lymph % (Auto) (20-40) % [place] % (Auto) (2-11) % Eos % (Auto) (0-4) % Baso % (Auto) (0-2) % Lymph # (Auto) (1.2-4.9) X10*3/uL [place] # (Auto) (0.1-1.2) X10*3/uL Eos # (Auto) (0.0-0.4) X10*3/uL Baso # (Auto) (0.0-0.2) X10*3/uL Abs Immat Gran (auto) (0.00-0.03) X10*3/uL Absolute Neuts (auto) (2.0-8.3) x10*3/uL Absolute Nucleated RBC (0.0-0.012) X10*3/uL Nucleated RBC % (auto) (0.0-0.2) /100WBC Sodium (135-145) mmol/L Potassium (3.3-5.1) mmol/L Chloride (96-108) mmol/L Carbon Dioxide (22-29) mmol/L Anion Gap (12-20) BUN (9-16) mg/dL Creatinine (0.5-1.4) mg/dL Estim Creat Clear Calc Estimated GFR Random Glucose (60-115) mg/dL Calcium (8.4-10.2) mg/dL Total Bilirubin (0.0-1.0) mg/dL AST (5-31) U/L ALT (0-31) U/L Alkaline Phosphatase (39-117) U/L Total Protein (6.5-8.0) g/dL Albumin (3.5-5.0) g/dL Beta HCG, Quant mIU/mL Urine Color Red A Urine Appearance Cloudy Urine pH 6.0 (5.0-9.0) Ur Specific [place] 1.020 (1.005-1.025) Urine Protein 100 (2+) H (Neg-Trace) mg/dL Urine Glucose (UA) Negative (Negative) mg/dL Urine Ketones Negative (Negative) mg/dL Urine Blood Large (3+) H (Negative) Urine Nitrite Negative (Negative) Ur Leukocyte Esterase Large (3+) H (Negative) Urine RBC >20 H (0-2) /HPF Urine WBC 11-20 (0-5) /HPF Ur Squamous Epith Cells 11-20 (0-2) /HPF Urine Bacteria 2+ (None Seen) Hyaline Casts 0-2 (0-2) /LPF Urine Test NEGATIVE (NEGATIVE) Influenza Type A (PCR) (Negative) Influenza Type B (PCR) (Negative) RSV RNA Qual (PCR) (Negative) SARS-CoV-2 RNA (RT-PCR) (Negative) Discharge Plan Discharge Clinical Impression: Abdominal pain, UTI (urinary tract infection) Patient Disposition: Home, Self-Care Instructions: Urinary Tract Infection in Women (ED), Abdominal Pain (ED) Additional Instructions: You lab workup today was unremarkable. Your urine test was negative for but showed you may have a urinary tract infection. Take prescribed antibiotics as directed. Complete the entire course Recommend rest and plenty of oral hydration. Stick to a bland diet like soup and toast while you are not feeling well. Recommend over the counter Pepto Bismol or Imodium for upset stomach and diarrhea. Follow up with your doctor as needed. If you develop new or worsening symptoms call 911 or come back to the ER for further evaluation. Prescriptions: New nitrofurantoin monohyd/m-cryst [Macrobid] 100 mg capsule 100 mg PO Q12H 5 Days Qty: 10 0RF Rx Instructions: must administer with a meal/food No Action pyridoxine (vitamin B6) 25 mg tablet 25 mg PO BID PRN (Reason: nausea and vomiting) Qty: 30 0RF doxylamine succinate 25 mg tablet 25 mg PO BID PRN (Reason: nausea and vomiting) Qty: 30 0RF acetaminophen [Tylenol Extra Strength] 500 mg tablet 500 mg PO Q6H PRN (Reason: fever or pain) Qty: 30 0RF Stand Alone Forms: Work/School Release
[2022-03-18 08:41] VITALS: BP 126/67; PULSE 65; RESP 18; O2SAT 99
--- OUTSIDE RECORDS SUMMARY | 2022-03-18 08:44 | XMS_ITS | Continuity of Care Document ---
:2000 Author Organization [facility] Adult Address [address] [place] [address]- Care Team Providers Name Role Phone Not on Staff, PCP Primary Care Physician Unavailable Encounter [facility] Date(s): 08/13/19 - 09/12/19 [facility] [address] [place] [address]- [facility] Attending Physician: Admtr, [id number] Admitting Physician: Admtr, [id number] Referring Physician: Admtr, [id number] Allergies, Adverse Reactions, Alerts Substance Reaction Severity Status NKA Active Problem List Condition Effective Dates Status Health Status Informant Ventricular septal defect(Confirmed) Active Social History Social History Type Response Smoking Status Never smoker; Tobacco user i n household: No entered on: 04/14/15 Sex
--- OUTSIDE RECORDS SUMMARY | 2022-03-18 08:44 | XMS_ITS | Continuity of Care Document ---
:2000 Author Organization [facility] Address [address] [place] [id number]- Care Team Providers Name Role Phone Willis Stokes MD Primary Care Physician Encounter [facility] Date(s): 04/10/21 - 04/10/[address] [address]- Encounter Diagnosis COVID-19 (Final) - 04/10/21 Dehydration (Final) - 04/10/21 Discharge Disposition: A-D/C Home Attending Physician: Saima Shaw MD Admitting Physician: Saima Shaw MD Referring Physician: Not on Staff, Referring MD Allergies, Adverse Reactions, Alerts Substance Reaction Severity Status NKA Active Immunizations Given and Recorded Vaccine Date Status Refusal Reason tetanus/diphtheria/pertussis, acel(Tdap) 09/01/09 Recorde d Varicella Virus Vaccine 10/29/07 Recorded Varicella Virus Vaccine 04/19/99 Recorded Measles/Mumps/Rubella Virus Vaccine 05/19/02 Recorded Measles/Mumps/Rubella Virus Vaccine 06/24/99 Recorded Medications Doxycycline 100 mg, By Mouth, Daily, Maintenance, [facility], 10/06/19 10:46:00 EDT Start Date: 10/06/19 Status: OrderedPrenatal Multivitamins By Mouth, Daily, 0 Refills, Maintenance, 10/06/19 10:46:00 EDT Start Date: 10/06/19 Status: Ordered Problem List Condition Effective Dates Status Health Status Informant Ventricular septal defect - non Active cyanotic defect, medical closure, NO antibiotic prophylaxis indicated(Confirmed) Vital Signs Most recent to oldest 1 2 3 [Reference Range]: Height 163 cm (04/10/21 9:50 AM) Weight 163 kg (04/10/21 9:50 AM) Oxygen Saturation [94-100 99 % 100 % 99 % %] (04/10/21 5:38 PM) (04/10/21 4:00 PM) (04/10/21 2:00 PM) Pulse Rate [55-90 bpm] 90 bpm 116 bpm 114 bpm (04/10/21 5:38 PM) *H* *H* (04/10/21 4:00 PM) (04/10/21 2:0 0 PM) Blood Pressure 113/80 mm Hg 108/54 mm Hg 130/76 mm Hg [90-138/55-84 mm Hg] (04/10/21 5:38 PM) (04/10/21 4:00 PM) (03/17 10/04 2:00 PM) Respiratory Rate [16-30 18 br/min 20 br/min 18 br/mi n br/min] (04/10/21 5:38 PM) (04/10/21 4:00 PM) (04/10/21 2:00 PM) Temperature [96.8-100.4 99.9 DegF 100.1 DegF 100.6 De gF DegF] (04/10/21 5:38 PM) (04/10/21 2:00 PM) *H* (04/10/21 12:00 PM) Mode of Delivery (Oxygen) Room air Room air Room a ir (04/10/21 5:38 PM) (04/10/21 4:00 PM) (04/10/21 2:00 PM) Blood pressure sites Arm, left Arm, left Arm, left (04/10/21 5:38 PM) (04/10/21 4:00 PM) (04/10/21 2:00 PM) Temperature Route Oral Oral Oral (04/10/21 5:38 PM) (04/10/21 2:00 PM) (04/10/21 12:00 PM) Dry Weight 68 kg (04/10/21 9:50 AM) Social History Social History Type Response Smoking Status Never smoker; Tobacco user i n household: No entered on: 04/14/15 Sex
--- OUTSIDE RECORDS SUMMARY | 2022-03-18 08:44 | XMS_ITS | Continuity of Care Document ---
:2000 Author Organization [facility] Address [address] [place] [phone]- Care Team Providers Name Role Phone Willis Stokes MD Primary Care Physician Encounter [facility] Date(s): 10/06/19 - 10/13/19 [facility] [address] [place] [phone]- [facility] Encounter Diagnosis Ventricular septal defect (Discharge Diagnosis) - 10/06/19 Miscarriage within last 12 months (Discharge Diagnosis) - 10/06/19 Attending Physician: Willis Stokes MD Allergies, Adverse Reactions, Alerts Substance Reaction Severity Status NKA Active Medications Doxycycline 100 mg, By Mouth, Daily, Maintenance, [facility], 10/06/19 10:46:00 EDT Start Date: 10/06/19 Status: OrderedPrenatal Multivitamins By Mouth, Daily, 0 Refills, Maintenance, 10/06/19 10:46:00 EDT Start Date: 10/06/19 Status: Ordered Problem List Condition Effective Dates Status Health Status Informant Ventricular septal defect - non Active cyanotic defect, medical closure, NO antibiotic prophylaxis indicated(Confirmed) Diagnosis Diagnosis Type Effective Dates Health Clinical Infor [facility] Status Service Ventricular septal Discharge 10/06/19 defect Diagnosis Miscarriage within Discharge 10/06/19 last 12 months Diagnosis Procedures Procedure Date Related Diagnosis Body Site Status Dilation and curettage Compl eted Vital Signs Most recent to oldest [Reference Range]: 1 Height 161.0 cm (10/06/19 10:39 AM) Social History Social History Type Response Smoking Status Never smoker; Tobacco user i n household: No entered on: 04/14/15 Sex
--- OUTSIDE RECORDS SUMMARY | 2022-03-18 08:44 | XMS_ITS | Continuity of Care Document ---
:2000 Author Organization [facility] Address [address] [place] [phone]- Care Team Providers Name Role Phone Prakash HERNANDES, Kaykay Collins Primary Care Physician Encounter [facility] Date(s): 12/14/21 - 12/15/[address] [id number] Discharge Disposition: A-D/C Home Attending Physician: Fabi Berman MD Admitting Physician: Fabi Berman MD Referring Physician: Fabi Berman MD Allergies, Adverse Reactions, Alerts No Known Allergies Immunizations Given and Recorded Vaccine Date Status Refusal Reason tetanus/diphtheria/pertussis, acel(Tdap) 09/01/09 Recorde d Varicella Virus Vaccine 10/29/07 Recorded Varicella Virus Vaccine 04/19/99 Recorded Measles/Mumps/Rubella Virus Vaccine 05/19/02 Recorded Measles/Mumps/Rubella Virus Vaccine 06/24/99 Recorded Medications Doxycycline 100 mg, By Mouth, Daily, Maintenance, [facility], 10/06/19 10:46:00 EDT Start Date: 10/06/19 Status: Orderedibuprofen 800 mg oral tablet 800 mg, 1, tablet, By Mouth, 3 times a day, PRN, # 30 tablet, Refills 0, Tot. Refills 0, Maintenance, for pain, 12/15/21 1:10:00 EDT, Route to Pharmacy Electronically, [id number], Partial fill upon patient request if the prescription... Start Date: 12/15/21 Status: OrderedPrenatal Multivitamins By Mouth, Daily, 0 Refills, Maintenance, 10/06/19 10:46:00 EDT Start Date: 10/06/19 Status: OrderedTylenol Extra Strength 500 mg oral tablet 2 tablet = 1,000 mg, By Mouth, Every 4 hours, PRN for fever, # 50 tablet, 0 Refills, Maintenance, 12/15/21 1:10:00 EDT, Tablet, [facility] #[id number], Partial fill upon patient request if the prescription is for a schedule II opioid drug., 163,... Start Date: 12/15/21 Status: Ordered Problem List Condition Effective Dates Status Health Status Informant Ventricular septal defect - non Active cyanotic defect, medical closure, NO antibiotic prophylaxis indicated(Confirmed) Vital Signs Most recent to oldest [Reference Range]: 1 Weight 68.4 kg (12/14/21 9:42 PM) Oxygen Saturation [94-100 %] 100 % (12/14/21 9:58 PM) Blood Pressure [90-138/55-84 mm Hg] 122/75 mm Hg (12/14/21 9:58 PM) Respiratory Rate [16-30 br/min] 16 br/min (12/14/21 9:58 PM) Temperature [96.8-100.4 DegF] 99.2 DegF (12/14/21 9:58 PM) Mode of Delivery (Oxygen) Room air (12/14/21 9:58 PM) Blood pressure sites Arm, left (12/14/21 9:58 PM) Temperature Route Oral (12/14/21 9:58 PM) Dry Weight 68.4 kg (12/14/21 9:42 PM) Weight Obtained Via Standing scale (12/14/21 9:42 PM) Social History Social History Type Response Smoking Status Never smoker; Tobacco user i n household: No entered on: 04/14/15 Sex Care Team PersonnelName: Kaykay Randall NP Address: [address] [place] [address] [place], [place] [address]
--- OUTSIDE RECORDS SUMMARY | 2022-03-18 08:44 | XMS_ITS | Continuity of Care Document ---
:2000 Author Organization [facility] Address [address] [place] [phone]- Care Team Providers Name Role Phone Divya POLANCO, Willis Borja Primary Care Physician Encounter [facility] Date(s): 10/06/19 - 11/05/19 [facility] [address] [place] [phone]- [facility] Attending Physician: Adry Harrison Admitting Physician: Adry Harrison Referring Physician: AdmtrAdry Allergies, Adverse Reactions, Alerts Substance Reaction Severity Status NKA Active Immunizations Given and Recorded Vaccine Date Status Refusal Reason tetanus/diphtheria/pertussis, acel(Tdap) 09/01/09 Recorde d Varicella Virus Vaccine 10/29/07 Recorded Varicella Virus Vaccine 04/19/99 Recorded Measles/Mumps/Rubella Virus Vaccine 05/19/02 Recorded Measles/Mumps/Rubella Virus Vaccine 06/24/99 Recorded Medications Doxycycline 100 mg, By Mouth, Daily, Maintenance, [facility], 10/06/19 10:46:00 EDT Start Date: 10/06/19 Status: OrderedPrenatal Multivitamins By Mouth, Daily, 0 Refills, Maintenance, 10/06/19 10:46:00 EDT Start Date: 10/06/19 Status: Ordered Problem List Condition Effective Dates Status Health Status Informant Ventricular septal defect - non Active cyanotic defect, medical closure, NO antibiotic prophylaxis indicated(Confirmed) Social History Social History Type Response Smoking Status Never smoker; Tobacco user i n household: No entered on: 04/14/15 Sex
[2022-03-18 09:00] LABS: MANUAL DIFF FLAG NO
[2022-03-18] MEDS: Lactated Ringers 1,000 ML 999 ML IV (09:00)
[2022-03-18 09:06] LABS: Basophils Percent Auto 0.4 % (0-2); Eosinophils Percent Auto 0.7 % (0-4); Hematocrit 41.8 % (37.0-47.0); Hemoglobin 14.2 g/dl (12.0-16.0); Imm Gran Abs Auto 0.01 X10*3/uL (0.00-0.03); Imm Gran Pct Auto 0.2 % (0.0-0.4); Lymphocytes Absolute Auto 2.1 X10*3/uL (1.2-4.9); Lymphocytes Percent Auto 46.4 % (20-40); Mean Corpuscular Hemoglobin 30.2 pg (27.0-33.0); Mean Corpuscular Volume 88.9 fL (80.0-98.0); Mean Platelet Volume 9.5 fL (9.4-12.3); Monocytes Absolute Auto 0.5 X10*3/uL (0.1-1.2); Monocytes Percent Auto 10.4 % (2-11); Neutrophils Absolute Auto 1.9 x10*3/uL (2.0-8.3); Neutrophils Percent Auto 41.9 % (45-73); Platelet Count 253 X10*3/uL (160-400); Red Cell Distribution Width 11.5 % (11.0-16.0); White Blood Count 4.6 X10*3/uL (4.8-10.8)
[2022-03-18 09:27] LABS: Alanine Aminotransferase 10 U/L (0-31); Albumin Level 4.3 g/dL (3.5-5.0); Alkaline Phosphatase 55 U/L (39-117); Anion Gap 11 (12-20); Aspartate Amino Transferase 21 U/L (5-31); Bilirubin Total 0.5 mg/dL (0.0-1.0); Blood Urea Nitrogen 11 mg/dL (9-16); Calcium 9.1 mg/dL (8.4-10.2); Carbon Dioxide 25 mmol/L (22-29); Chloride 103 mmol/L (96-108); Estimated Glomerular Filt Rate > 60; Glucose Random 91 mg/dL (60-115); Potassium 3.6 mmol/L (3.3-5.1); Sodium 135 mmol/L (135-145); Total Protein 7.4 g/dL (6.5-8.0)
[2022-03-18 09:41] LABS: Influenza A PCR NEGATIVE (Negative); Influenza B PCR NEGATIVE (Negative); Resp Syncy Virus RNA Qual PCR NEGATIVE (Negative); SARS COV2 PCR INHOUSE NEGATIVE (Negative)
[2022-03-18 10:07] LABS: HCG Quantitative < 2 mIU/mL
[2022-03-18] MEDS: Ketorolac Tromethamine 30 MG/ML VIAL IVPUSH (10:54)
[2022-03-18 10:57] VITALS: BP 146/95; PULSE 95; RESP 16; O2SAT 100
[2022-03-18 11:10] LABS: Urine Pregnancy NEGATIVE (NEGATIVE)
[2022-03-18 11:11] LABS: UPreg QC Valid YES
[2022-03-18 11:13] LABS: Appearance Urine Cloudy; Color Urine Red; Glucose Urine UA Negative (Negative); Leukocyte Esterase Urine Large (3+) (Negative); Nitrite Urine Negative (Negative); UMIC TRIGGER UACC YES; Urine Blood Large (3+) (Negative); Urine Ketones Negative (Negative); Urine Protein 100 (2+) mg/dL (Neg-Trace)
[2022-03-18 11:31] LABS: Bacteria Urine 2+ (None Seen); Hyaline Casts Urine 0-2 /LPF (0-2); RBC Urine >20 /HPF (0-2); UACC Culture Trigger YES
[2022-03-18] MEDS: iohexoL 350 MG/ML 100 ML INFUS..BTL 85 ML IV (11:39)
== END 2022-03-18 13:14 | disposition home or self-care (01) ==
PROVIDERS: Physician Assistant; Emergency Provider Emergency Medicine
DX: N39.0 Urinary tract infection, site not specified (principal); R10.9 Unspecified abdominal pain; Z20.822 Contact with and (suspected) exposure to COVID-19
CPT/HCPCS: 0241U; 36415; 71045; 74177; 80053; 81001; 81025; 84702; 85025; 87086; 96361; 96374; 99284; 99285; J1885; Q9967

== ENCOUNTER 2022-10-11 19:27 | Emergency (ER) | payer OTHER, SELFPAY ==
[2022-10-11 19:28] VITALS: BP 138/85; PULSE 102; RESP 18; TEMP 36.6; O2SAT 99; BMI 22.3
--- NOTE | 2022-10-11 19:28 | ED.EAR ---
HPI - Ear Problem General Chief complaint: Ear Problems Stated complaint: ? right ear infection Time Seen by Provider: 10/11/22 19:29 Source: patient, RN notes reviewed and old records reviewed Mode of arrival: ambulatory History of Present Illness HPI Narrative: 22yo female w/no sig PMHx c/o right ear pain and clogging/irritation x3 days. denies recent swimming, draining from ear, hearing loss, fever, sore throat MD Complaint: ear pain Location: right ear Duration: constant Related Data Previous Rx's Medication Instructions Recorded doxylamine succinate 25 mg tablet 25 mg PO BID PRN nausea and 10/30/20 vomiting #30 tabs pyridoxine (vitamin B6) 25 mg 25 mg PO BID PRN nausea and 10/30/20 tablet vomiting #30 tabs acetaminophen 500 mg tablet 500 mg PO Q6H PRN fever or pain 09/02/21 (Tylenol Extra Strength) #30 tabs nitrofurantoin 100 mg PO Q12H 5 days #10 caps 03/18/22 monohydrate/macrocrystals 100 mg capsule (Macrobid) cephalexin 500 mg capsule 500 mg PO QID 7 days #28 caps 10/11/22 Allergies Allergy/AdvReac Type Severity Reaction Status Date / Time No Known Allergies Allergy Verified 03/18/22 07:07 Review of Systems Review of Systems: Constitutional: No Fever, No Chills ENT/Mouth: + Ear Pain, No Nasal Congestion, No Sinus Pain, No Hoarseness, No sore throat, No Rhinorrhea, No Swallowing Difficulty Cardiovascular: No Chest Pain, No SOB Respiratory: No Cough, No Sputum, No Wheezing Gastrointestinal: No Nausea, No Vomiting, No Diarrhea, No Constipation, No Abdominal pain Musculoskeletal: No joint pain, No Myalgias, No Joint Swelling Skin: No Skin Lesions, No rash Neuro: No Weakness Yes all other systems are reviewed and are negative Constitutional: Constitutional: Reports as per [facility] Past Medical History Attestation statement: The following information was validated with the patient. Source: old records reviewed Medical History Heart murmur Miscarriage Social History Social History Patient Tobacco Use Status: Former Tobacco user Physical Exam Vital Signs: Vital Signs: Last Vital Signs Temp 97.9 F 10/11/22 19:28 Pulse 102 H 10/11/22 19:28 Resp 18 10/11/22 19:28 BP 138/85 10/11/22 19:28 Pulse Ox 99 10/11/22 19:28 O2 Del Method Room Air 10/11/22 19:28 BMI result Body Mass Index 22.3 Const: General: cooperative, healthy appearing and no acute distress Orientation/consciousness: patient oriented x3 Limitations: no limitations HEENT: Other: +right vidhya erythema & swelling w/ttp. No pointing/fluctuance or induration Head: Yes normal to inspection and Yes atraumatic Ears: hearing grossly normal bilaterally, TM's normal bilaterally, mastoids normal, external ear abnormal no auricular hematomas and no auricular tenderness and TMs normal General nose exam: Normal external nose present Face and sinus: Yes normal facial exam Throat: Yes posterior oropharynx normal, Yes tonsils normal, Yes uvula midline, No uvula laterally displaced and No uvular edema Eyes: General: appearance normal, both eyes and all related structures EOM: EOMs intact bilaterally Neck: Neck: Yes normal visual inspection, Yes no meningeal signs and No anterior neck swelling Resp: Effort & Inspection: normal respiratory effort and no respiratory distress Auscultation: clear to auscultation bilaterally Cardio: Rate: regular rate Skin: Rashes: no rashes Wounds: no wounds Neuro: General: patient oriented x3, tone normal and no meningeal signs Gait exam (Neuro): Normal gait present Extrem: General: Yes normal to inspection Medical Decision Making Medical Decision Making MDM Narrative: 22yo female w/no sig PMHx c/o right ear pain and clogging/irritation x3 days. On exam mildly tachycardic, NAD, nontoxic appearing, right external ear vidhya with erythema and swelling. No pointing. Tender to palpation, no fluctuance, TM and mastoid WNL. Concern for infected hair follicle/folliculitis vs cellulitis or possible early abscess/cyst although no fluctuance/induration at present. Low suspicion for mastoiditis or extending edema Plan: P.o. antibiotics, PCP follow-up Please refer to course for remaining clinical decision making, interpretation of labs/imaging results, and discussions with consultants and/or family members. Differential Diagnosis Differential Diagnoses: The differential diagnosis associated with the presentation includes As above External Record Review External record reviewed: Inpatient record, Office record, Outpatient record, Prior outpatient labs, Prior outpatient radiology, Primary care record and Outside ED record Tests considered The following testing was considered but not selected: As above Prescription Management I considered prescription management with: Pain Medication and Antibiotic Discharge Plan Discharge Clinical Impression: Cellulitis of vidhya of right ear Patient Disposition: Home, Self-Care Instructions: Cellulitis (DC) Additional Instructions: Keflex as an antibiotic please take as prescribed You may apply warm compresses, avoid touching the area If area begins to look more swollen/red, you have drainage from her ear, or turns to luz return to the ED Prescriptions: New cephalexin 500 mg capsule 500 mg PO QID 7 Days Qty: 28 0RF No Action pyridoxine (vitamin B6) 25 mg tablet 25 mg PO BID PRN (Reason: nausea and vomiting) Qty: 30 0RF doxylamine succinate 25 mg tablet 25 mg PO BID PRN (Reason: nausea and vomiting) Qty: 30 0RF acetaminophen [Tylenol Extra Strength] 500 mg tablet 500 mg PO Q6H PRN (Reason: fever or pain) Qty: 30 0RF nitrofurantoin monohyd/m-cryst [Macrobid] 100 mg capsule 100 mg PO Q12H 5 Days Qty: 10 0RF Rx Instructions: must administer with a meal/food Referrals: Physician,Unknown J [Primary Care Provider] - 2 days (For re-evaluation)
== END 2022-10-11 19:59 | disposition home or self-care (01) ==
PROVIDERS: Emergency Provider Emergency Medicine
DX: H60.11 Cellulitis of right external ear (principal); J02.9 Acute pharyngitis, unspecified
CPT/HCPCS: 99281; 99283

== ENCOUNTER 2022-10-14 19:08 | Emergency (ER) | payer OTHER, SELFPAY ==
[2022-10-14 19:09] VITALS: BP 145/85; PULSE 97; RESP 18; TEMP 36.3; O2SAT 100; BMI 24.9
--- NOTE | 2022-10-14 19:10 | ED.GENADULT ---
HPI - General Adult General Chief complaint: Ear Problems Stated complaint: ear infection Time Seen by Provider: 10/14/22 20:19 Source: patient Mode of arrival: ambulatory Limitations: no limitations History of Present Illness HPI narrative: 22-year-old female came in for evaluation of right ear pain for 4-5 days, patient was seen in the emergency department was placed on cephalexin 500 mg every 6 hours for assumed cellulitis of the right ear, patient declined any recent public pool swimming. Related Data Previous Rx's Medication Instructions Recorded doxylamine succinate 25 mg tablet 25 mg PO BID PRN nausea and 10/30/20 vomiting #30 tabs pyridoxine (vitamin B6) 25 mg 25 mg PO BID PRN nausea and 10/30/20 tablet vomiting #30 tabs acetaminophen 500 mg tablet 500 mg PO Q6H PRN fever or pain 09/02/21 (Tylenol Extra Strength) #30 tabs nitrofurantoin 100 mg PO Q12H 5 days #10 caps 03/18/22 monohydrate/macrocrystals 100 mg capsule (Macrobid) cephalexin 500 mg capsule 500 mg PO QID 7 days #28 caps 10/11/22 ciprofloxacin 0.2 %-hydrocortisone 3 drp otic (ears) BID #10 mL 10/14/22 1 % ear drops,suspension (Cipro HC) Allergies Allergy/AdvReac Type Severity Reaction Status Date / Time No Known Allergies Allergy Verified 03/18/22 07:07 Review of Systems Review of Systems: All other systems are reviewed and are negative Constitutional: Reports as per HPI and Reports no additional constitutional complaints Eyes: Reports as per HPI and Reports no additional eye complaints Reports system reviewed and no additional complaints, except as documented Cardiovascular: Reports as per HPI and Reports no additional cardiovascular complaints Respiratory: Reports as per HPI and Reports no additional respiratory complaints Gastrointestinal: Reports as per HPI and Reports no additional gastrointestinal complaints Genitourinary: Reports no additional female genitourinary complaints Musculoskeletal: Reports no additional musculoskeletal complaints Skin/Breast: Reports system reviewed and no additional complaints, except as docu Psychiatric: Reports no additional psychiatric complaints Endocrine: Reports no additional endocrine complaints Hematologic/Lymphatic: Reports no additional hematologic/lymphatic complaints Allergic/Immunologic: Reports no additional allergic/immunologic complaints Reports system reviewed and no additional complaints, except as documented and Reports Abnormal speech present [facility] Past Medical History Medical History Heart murmur Miscarriage Social History Social History Patient Tobacco Use Status: Former Tobacco user Advance Directives: No Advance Directives Information Provided: No Physical Exam ED Vital Signs: Vital Signs - 24 hr 10/14/22 19:09 Temperature 97.3 F Pulse Rate 97 Respiratory Rate 18 Blood Pressure 145/85 H Pulse Oximetry 100 Oxygen Delivery Method Room Air BMI result Body Mass Index 24.9 Vital signs have been reviewed as appeared to be correct. Blood pressure normal. Heart rate normal. Respiration rate normal. Temperature normal. Oxygen saturation normal. Appearance: Alert. Oriented X3. No acute distress. Head: Normal external exam. Normocephalic. Atraumatic. No Scherer signs noted. No raccoon eyes noted Eyes: PERRLA. EOMI. Conjunctiva and sclera normal. Eyelids normal. ENT: TM's Normal. Pharynx normal. Uvula midline. Moist mucous membranes. 1 x 1 cm area of fluctuation in the right external ear canal over the vidhya. Neck: Normal inspection. Neck supple. FROM. No adenopathy. Thyroid Normal. No meningeal signs. No neck mass noted. CVS: Normal heart rate and rhythm. Heart sound normal. No murmurs noted. Pulses normal throughout. Respiratory: No respiratory distress. Painless inspiration. Breath sounds normal. No wheezes/rales/rhonchi noted. Chest nontender. No accessory muscle usage noted or decreased air movement noted. Abdomen: Soft and nontender. Bowel sounds normal in all 4 quadrants. No distention noted. No organomegaly noted. No visible injury noted. Back: No CVA tenderness. Full range of motion noted. Skin: Skin warm and dry. Normal skin color. Normal skin turgor. No rashes/lesions/lacerations noted. Extremities: No lower extremity edema. Extremities exhibit normal range of motion. Extremities nontender. Neuro: Oriented X 3. Cranial nerve exam: II-XII are grossly intact No motor deficit. No sensory deficit. Reflexes normal. Course Course Course Narrative: RME performed by Abbi Lyle PA-C. Patient is a 22 year old assigned female at presenting to the emergency department with right ear pain. Labs ordered. Patient placed back in the waiting room pending room availability and results. Reevaluation(s) Reevaluation #1: Small abscess on the vidhya, s/p I&D patient feels better Time: 21:01 Medications Administered Discontinued Medications Generic Name Dose Route Start Last Admin Trade Name Freq PRN Reason Stop Dose Admin Ibuprofen 600 mg 10/14/22 20:58 10/14/22 21:09 Ibuprofen 600 Mg Tablet PO 10/14/22 20:59 Not Given ONCE ONE Procedures Abscess I/D Site: other (Right ear vidhya) Technique: needle aspiration Amount of fluid expressed (mL): 2 Sent for culture/gram staining?: No Irrigation: No Packing used?: none Discharge Plan Discharge Clinical Impression: Abscess of right external ear Patient Disposition: Home, Self-Care Instructions: Abscess (ED) Prescriptions: New Cipro HC 0.2-1 % drops,suspension 3 drp otic (ears) BID Qty: 10 0RF No Action pyridoxine (vitamin B6) 25 mg tablet 25 mg PO BID PRN (Reason: nausea and vomiting) Qty: 30 0RF doxylamine succinate 25 mg tablet 25 mg PO BID PRN (Reason: nausea and vomiting) Qty: 30 0RF acetaminophen [Tylenol Extra Strength] 500 mg tablet 500 mg PO Q6H PRN (Reason: fever or pain) Qty: 30 0RF nitrofurantoin monohyd/m-cryst [Macrobid] 100 mg capsule 100 mg PO Q12H 5 Days Qty: 10 0RF Rx Instructions: must administer with a meal/food cephalexin 500 mg capsule 500 mg PO QID 7 Days Qty: 28 0RF Referrals: Physician,Unknown J [Primary Care Provider] -
--- NOTE | 2022-10-14 21:10 | PC.NURSE ---
pt requesting re-eval by provider, offered pt mariana, pt declined. pt expressed that she is anxious to leave due to getting dark and needing to walk home, MD notified.
== END 2022-10-14 21:29 | disposition home or self-care (01) ==
PROVIDERS: Emergency Provider Emergency Medicine
DX: H60.01 Abscess of right external ear (principal); H92.01 Otalgia, right ear
CPT/HCPCS: 10160; 69000; 99282; 99283; 99284

== ENCOUNTER 2023-08-16 10:59 | Emergency (ER) | payer OTHER, SELFPAY ==
--- NOTE | ~2023-08-16 | CT_ITS ---
EXAMINATION: CT ABDOMEN AND PELVIS WITHOUT CONTRAST CLINICAL INFORMATION: Flank pain. COMPARISON: 03/18/2022 TECHNIQUE: Multidetector volumetric imaging was performed from the superior aspect of the liver through the pubic symphysis. Sagittal and coronal reformatted images were obtained on the technologist's workstation. This CT examination was performed using dose optimization techniques as appropriate, variously including the following: *Automated exposure control *Adjustment of mA and/or kV according to patient size (this includes techniques or standardized protocols for targeted exams where dose is matched to indication/reason for exam; i.e. extremities or head) *Use of iterative reconstruction technique DLP: 404 mGy-cm FINDINGS: Motion artifact technically degrades image quality. LUNG BASES: No pleural or pericardial effusion. LIVER, GALLBLADDER, AND BILIARY TREE: The noncontrast liver is normal in size and contour. No biliary ductal dilatation is present. The gallbladder is unremarkable with no evidence of radiopaque gallstones, gallbladder wall thickening, or obvious pericholecystic inflammatory changes. PANCREAS: Unremarkable. SPLEEN: Unremarkable. ADRENAL GLANDS: Unremarkable. KIDNEYS AND URETERS: The kidneys are symmetric in size. No hydronephrosis or perinephric stranding. BLADDER: Underdistended. GASTROINTESTINAL TRACT: Small and large bowel loops are of normal caliber. No small bowel obstruction. Appendix is within normal limits. ABDOMINAL WALL: No significant hernia is appreciated. LYMPH NODES: No bulky lymphadenopathy. VASCULAR: Normal caliber abdominal aorta. PELVIC VISCERA: Unremarkable. OSSEOUS STRUCTURES: No destructive bone lesions. CT/CT abdomen pelvis wo IV con IMPRESSION: Limited by motion artifact. No acute abnormality in the abdomen or pelvis.
[2023-08-16 11:13] VITALS: BP 140/81; PULSE 93; RESP 18; TEMP 36.7; O2SAT 99; BMI 24.7
--- NOTE | 2023-08-16 11:13 | ED.ABDPAIN ---
HPI - Abdominal Pain General Chief Complaint: Abdominal Pain Stated Complaint: abd cramping Time Seen by Provider: 08/16/23 12:36 Source: patient Mode of arrival: ambulatory Limitations: no limitations History of Present Illness HPI narrative: 23 yo female with PMH of chronic abdominal pain states it is lower across the pelvis and wraps around states she has seen her doctor, 6 hospitals, has seen her OBGYN who did an US and colposcopy as well which she was told she needs a repeat test in 1 year. She denies n/v vaginal issues. She is a very poor historian, withdrawn, sitting on a chair and when asked if she could move to the bed for examination she was reluctant. She states she is safe at home. She has intermittent constipation/diarrhea at times but has not seen GI or trialed elimination diet. When asked where she has gone for care she staes she is not really sure what hospitals and when. She states she has been seen 6 times for this in past. Review of chart shows [address] scan withdrawn poor historian. The patient states she is safe at home as well. MD elicited complaint: abdominal pain Pertinent past history: none Onset (ago): year(s) (1) Pain Consistency: constant Location: pelvis Severity: moderate Quality: cramping Radiation: none Migration to: other (low back) Exacerbating factors: nothing Relieving factors: nothing Context: history of similar episodes Associated symptoms: diarrhea and constipation Related Data Previous Rx's ?Medication ?Instructions ?Recorded doxylamine succinate 25 mg tablet 25 mg PO BID PRN nausea and 10/30/20 vomiting #30 tabs pyridoxine (vitamin B6) 25 mg 25 mg PO BID PRN nausea and 10/30/20 tablet vomiting #30 tabs acetaminophen 500 mg tablet 500 mg PO Q6H PRN fever or pain 09/02/21 (Tylenol Extra Strength) #30 tabs nitrofurantoin 100 mg PO Q12H 5 days #10 caps 03/18/22 monohydrate/macrocrystals 100 mg capsule (Macrobid) cephalexin 500 mg capsule 500 mg PO QID 7 days #28 caps 10/11/22 ciprofloxacin 0.2 %-hydrocortisone 3 drp otic (ears) BID #10 mL 10/14/22 1 % ear drops,suspension (Cipro HC) Allergies Allergy/AdvReac Type Severity Reaction Status Date / Time No Known Allergies Allergy Verified 08/16/23 11:15 Review of Systems Review of Systems Constitutional : No Weight loss, No Fever, No Chills ENT/Mouth : No sore throat, No Rhinorrhea Eyes: No Swelling, No Redness Cardiovascular : No Chest Pain, No SOB, NoEdema Respiratory : No Cough, No Sputum, No Wheezing Gastrointestinal : no Nausea, no Vomiting, positive Diarrhea, positive abdominal Pain, No Hematochezia, No Melena, pos constipation Genitourinary : No Dysuria, No Urinary Frequency, No Hematuria, No Urgency Musculoskeletal : No joint pain, No Myalgias, No Joint Swelling Skin : No Skin Lesions, No rash Neuro : No Weakness, No Numbness, No Dizziness, No Headache All other systems reviewed and are negative. [facility] Past Medical History Attestation statement: The following information was validated with the patient. Source: old records reviewed Medical History Miscarriage Heart murmur Social History Social History Patient Tobacco Use Status: Former Tobacco user Advance Directives: No Physical Exam ED Vital Signs: Vital Signs - 24 hr 08/16/23 11:13 08/16/23 13:25 08/16/23 14:52 Temperature 98.1 F 98.4 F 98.7 F Pulse Rate 93 79 63 Respiratory Rate 18 18 18 Blood Pressure 140/81 H 139/66 124/82 Pulse Oximetry 99 100 100 Oxygen Delivery Method Room Air Room Air Room Air BMI result Body Mass Index 24.7 Appearance: Alert. Oriented X3. No acute distress. anxious appearing withdrawn flat affect poor historian I asked if she would feel comfortable with female provider she said no I had AgileMD present during interview as the patient seemed anxious. I have also asked Delilah COPPOLA to see her as well given I do not think she was comfortable talking to me. Eyes: Pupils equal, round and reactive to light. ENT: Pharynx normal. Neck: Normal inspection. Neck supple. CVS: Normal heart rate and rhythm. Pulses normal. Respiratory: No respiratory distress. Breath sounds normal. Abdomen: Soft and mild lower abdominal ttp no rebound or guarding. : deferred just had one by OBGYN per patient Skin: Skin warm and dry. Normal skin color. Normal skin turgor. Extremities: No lower extremity edema. No calf ttp Neuro: Oriented X 3. No motor deficit. No sensory deficit. Course Course Course Narrative: This is a rapid medical exam completed by Jaziel DAVEY: Additional HPI, ROS, PE not included below will be deferred to primary provider. Intermittent abdominal pain throughout the day with diarrhea and chest pain when the pain is at its worst. States pain has been on and off for the past several months. Last menses 1 month ago, denies chance of . Reevaluation(s) Reevaluation #1: patient stated she didn't want to be here anymore refused to wait for paperwork repeatedly rung call arriaga then got up and walked out without any issue Medical Decision Making Medical Decision Making MDM Narrative: 23 yo female with PMH of chronic abdominal pain she is very withdrawn and anxious it does seem like IBS vs GERD to me has full [employer] workup and declines at this time will obtain basic labs, UA, CT scan for renal colic - PO medications ordered. Differential Diagnosis Differential Diagnoses: The differential diagnosis associated with the presentation includes stone, IBS, anxiety, food intolerance Admission/Observation Consideration of admission/observation: Escalation of care including admission/observation considered refuses to stay asking to leave AMA aware we do not have results Lab Data [facility] Lab Attestation statement: I reviewed the patient's lab results. 08/16/23 11:33 08/16/23 11:33 Labs: Lab Results 08/16/23 Range/Units 11:33 WBC 5.6 (4.8-10.8) X10*3/uL RBC 4.60 (4.20-5.50) X10*6/uL Hgb 14.5 (12.0-16.0) g/dl Hct 41.7 (37.0-47.0) % MCV 90.7 (80.0-98.0) fL MCH 31.5 (27.0-33.0) pg MCHC 34.8 (31.0-35.0) g/dl RDW 12.2 (11.0-16.0) % Plt Count 261 (160-400) X10*3/uL MPV 9.2 L (9.4-12.3) fL Immature Gran % (Auto) 0.2 (0.0-0.4) % Neut % (Auto) 48.5 (45-73) % Lymph % (Auto) 43.4 H (20-40) % [place] % (Auto) 7.3 (2-11) % Eos % (Auto) 0.2 (0-4) % Baso % (Auto) 0.4 (0-2) % Lymph # (Auto) 2.4 (1.2-4.9) X10*3/uL [place] # (Auto) 0.4 (0.1-1.2) X10*3/uL Eos # (Auto) 0.0 (0.0-0.4) X10*3/uL Baso # (Auto) 0.0 (0.0-0.2) X10*3/uL Abs Immat Gran (auto) 0.01 (0.00-0.03) X10*3/uL Absolute Neuts (auto) 2.7 (2.0-8.3) x10*3/uL Absolute Nucleated RBC 0.000 (0.0-0.012) X10*3/uL Nucleated RBC % (auto) 0.0 (0.0-0.2) /100WBC Sodium 138 (135-145) mmol/L Potassium 4.0 (3.3-5.1) mmol/L Chloride 106 (96-108) mmol/L Carbon Dioxide 22 (22-29) mmol/L Anion Gap 14 (12-20) BUN 9 (9-16) mg/dL Creatinine 0.82 (0.5-1.4) mg/dL Estim Creat Clear Calc 90.5 Estimated GFR > 60 Random Glucose 88 (60-115) mg/dL Calcium 9.9 D (8.4-10.2) mg/dL Total Bilirubin 0.7 (0.0-1.0) mg/dL AST 39 H (5-31) U/L ALT 31 (0-31) U/L Alkaline Phosphatase 47 (39-117) U/L Total Protein 7.7 (6.5-8.0) g/dL Albumin 4.3 (3.5-5.0) g/dL Lipase 8 (8-78) U/L Urine Color Yellow Urine Appearance Clear Urine pH 5.5 (5.0-9.0) Ur Specific Calvin 1.025 (1.005-1.025) Urine Protein Negative (Neg-Trace) mg/dL Urine Glucose (UA) Negative (Negative) mg/dL Urine Ketones Trace (Negative) mg/dL Urine Blood Negative (Negative) Urine Nitrite Negative (Negative) Ur Leukocyte Esterase Trace H (Negative) Urine RBC 0-2 (0-2) /HPF Urine WBC 0-5 (0-5) /HPF Ur Squamous Epith Cells 3-5 (0-2) /HPF Urine Bacteria None Seen (None Seen) Hyaline Casts 0-2 (0-2) /LPF Urine Test NEGATIVE (NEGATIVE) Independent Interpretation I performed an independent interpretation of an: CT Scan External Record Review External record reviewed: Inpatient record Prescription Management I considered prescription management with: Other Medications Administered Discontinued Medications Generic Name Dose Route Start Last Admin Trade Name Freq PRN Reason Stop Dose Admin Al Hydroxide/Mg Hydroxide 15 ml 08/16/23 13:25 08/16/23 13:36 Magnesium Hydrox/Alum Hydrox 30 Ml Oral.Susp PO 08/16/23 13:26 15 ml ONCE ONE Administration Dicyclomine HCl 10 mg 08/16/23 13:25 08/16/23 13:36 Dicyclomine Hcl 10 Mg Capsule PO 08/16/23 13:26 10 mg ONCE ONE Administration Famotidine 20 mg 08/16/23 13:25 08/16/23 13:36 Famotidine 20 Mg Tablet PO 08/16/23 13:26 20 mg ONCE ONE Administration Discharge Plan Discharge Clinical Impression: Abdominal pain Qualifiers: Abdominal location: lower abdomen, unspecified Qualified Code(s): R10.30 - Lower abdominal pain, unspecified Patient Disposition: Left Against Medical Advice Instructions: Abdominal Pain (ED), Against Medical Advice (ED) Additional Instructions: your labs and urine are reassuring. your CT scan is pending you can call medical records to get the result or ask your primary care doctor to help obtain it return for any worsening symptoms or concerns please ask your doctor to refer you to a facilities officer Prescriptions: No Action pyridoxine (vitamin B6) 25 mg tablet 25 mg PO BID PRN (Reason: nausea and vomiting) Qty: 30 0RF doxylamine succinate 25 mg tablet 25 mg PO BID PRN (Reason: nausea and vomiting) Qty: 30 0RF acetaminophen [Tylenol Extra Strength] 500 mg tablet 500 mg PO Q6H PRN (Reason: fever or pain) Qty: 30 0RF nitrofurantoin monohyd/m-cryst [Macrobid] 100 mg capsule 100 mg PO Q12H 5 Days Qty: 10 0RF Rx Instructions: must administer with a meal/food cephalexin 500 mg capsule 500 mg PO QID 7 Days Qty: 28 0RF Cipro HC 0.2-1 % drops,suspension 3 drp otic (ears) BID Qty: 10 0RF Stand Alone Forms: Against Medical Advice Print Language: Estonian
[2023-08-16 11:38] LABS: MANUAL DIFF FLAG NO
[2023-08-16 11:42] LABS: Appearance Urine Clear; Basophils Percent Auto 0.4 % (0-2); Color Urine Yellow; Eosinophils Percent Auto 0.2 % (0-4); Glucose Urine UA Negative (Negative); Hematocrit 41.7 % (37.0-47.0); Hemoglobin 14.5 g/dl (12.0-16.0); Imm Gran Abs Auto 0.01 X10*3/uL (0.00-0.03); Imm Gran Pct Auto 0.2 % (0.0-0.4); Leukocyte Esterase Urine Trace (Negative); Lymphocytes Absolute Auto 2.4 X10*3/uL (1.2-4.9); Lymphocytes Percent Auto 43.4 % (20-40); Mean Corpuscular HGB Conc 34.8 g/dl (31.0-35.0); Mean Corpuscular Hemoglobin 31.5 pg (27.0-33.0); Mean Corpuscular Volume 90.7 fL (80.0-98.0); Mean Platelet Volume 9.2 fL (9.4-12.3); Monocytes Absolute Auto 0.4 X10*3/uL (0.1-1.2); Monocytes Percent Auto 7.3 % (2-11); Neutrophils Absolute Auto 2.7 x10*3/uL (2.0-8.3); Neutrophils Percent Auto 48.5 % (45-73); Nitrite Urine Negative (Negative); PH 5.5 (5.0-9.0); Platelet Count 261 X10*3/uL (160-400); Red Cell Distribution Width 12.2 % (11.0-16.0); Specific Gravity - Urine 1.025 (1.005-1.025); UMIC TRIGGER UACC YES; UPreg QC Valid YES; Urine Blood Negative (Negative); Urine Ketones Trace mg/dL (Negative); Urine Pregnancy NEGATIVE (NEGATIVE); Urine Protein Negative (Neg-Trace); White Blood Count 5.6 X10*3/uL (4.8-10.8)
[2023-08-16 11:56] LABS: Alanine Aminotransferase 31 U/L (0-31); Albumin Level 4.3 g/dL (3.5-5.0); Alkaline Phosphatase 47 U/L (39-117); Anion Gap 14 (12-20); Aspartate Amino Transferase 39 U/L (5-31); Bilirubin Total 0.7 mg/dL (0.0-1.0); Blood Urea Nitrogen 9 mg/dL (9-16); Calcium 9.9 mg/dL (8.4-10.2); Carbon Dioxide 22 mmol/L (22-29); Chloride 106 mmol/L (96-108); Creatinine Clr Calc Pharmacy 90.5; Estimated Glomerular Filt Rate > 60; Glucose Random 88 mg/dL (60-115); Sodium 138 mmol/L (135-145); Total Protein 7.7 g/dL (6.5-8.0)
[2023-08-16 11:57] LABS: Bacteria Urine None Seen (None Seen); Hyaline Casts Urine 0-2 /LPF (0-2); RBC Urine 0-2 /HPF (0-2); WBC Urine 0-5 /HPF (0-5)
[2023-08-16 13:17] LABS: Lipase 8 U/L (8-78)
[2023-08-16 13:25] VITALS: BP 139/66; PULSE 79; RESP 18; TEMP 36.9; O2SAT 100
[2023-08-16] MEDS: Famotidine 20 MG TABLET PO (13:36)
[2023-08-16] MEDS: Dicyclomine HCl 10 MG CAPSULE PO (13:36)
[2023-08-16] MEDS: Magnesium Hydrox/Alum Hydrox 30 ML ORAL.SUSP 15 ML PO (13:36)
[2023-08-16 14:52] VITALS: BP 124/82; PULSE 63; RESP 18; TEMP 37.1; O2SAT 100
--- NOTE | 2023-08-16 15:38 | PC.NURSE ---
pt sts she wants to leave AMA due to not wanting to stick around for CT scan results. when t/w brought paperwork into room, pt was no where to be found. t/w found pt sitting outside of triage, sitting with her knees to chest and rocking back and forth. pt refused to sign paperwork and stated she wanted a work note. t/w explained to her that we would not be giving her a work note due to her leaving AMA. pt sts she will stay but sit outside of room to wait for results. pt appears to be anxious, sts she had a bad experience in the hospital previously and will not elaborate further. Dr. Tomas aware of situation. plan of care ongoing.
[2023-08-16 16:41] VITALS: BP 122/79; PULSE 59; RESP 16; TEMP 36.9; O2SAT 100
== END 2023-08-16 16:42 | disposition still patient (30) ==
PROVIDERS: Nurse Practitioner Family; Emergency Provider Emergency Medicine
DX: R10.30 Lower abdominal pain, unspecified (principal); Z79.899 Other long term (current) drug therapy
CPT/HCPCS: 36415; 74176; 80053; 81001; 81025; 83690; 85025; 99284

== ENCOUNTER 2023-09-04 12:51 | Emergency (ER) | payer OTHER, SELFPAY ==
--- NOTE | ~2023-09-04 | XR_ITS ---
EXAMINATION: XR FINGER, LEFT CLINICAL INFORMATION: Left thumb injury COMPARISON: None available. TECHNIQUE: Three views of the left thumb. FINDINGS: The bones and soft tissues are normal. No fracture. Alignment is anatomic. Joint spaces are maintained. XR/XR finger LT min 2V IMPRESSION: Unremarkable finger radiographs.
--- NOTE | ~2023-09-04 | CT_ITS ---
EXAMINATION: CT CERVICAL SPINE WITHOUT CONTRAST; UNENHANCED CT OF THE HEAD. CLINICAL INFORMATION: Neck pain status post trauma COMPARISON: None TECHNIQUE: Routine unenhanced CT of the head with multiple coronal and sagittal reformatted images; routine unenhanced CT of the cervical spine with multiple coronal and sagittal reformatted images. This CT examination was performed using dose optimization techniques as appropriate, variously including the following: *Automated exposure control *Adjustment of mA and/or kV according to patient size (this includes techniques or standardized protocols for targeted exams where dose is matched to indication/reason for exam; i.e. extremities or head) *Use of iterative reconstruction technique DLP: 933 mGy-cm FINDINGS: CT head: No intracranial hemorrhage, tumors or acute infarcts noted. The ventricles and sulci are normal in size and configuration. No focal parenchymal lesions of the brain or abnormal extra-axial fluid collections identified. The orbits and globes are normal in appearance. No significant opacification of the visualized paranasal sinuses, mastoid air cells and middle ear cavities. No extracranial soft tissue inflammatory changes visualized. CT cervical spine: No fractures or acute appearing subluxations identified. The visualized lung apices are clear. No vertebral body compression deformities or cervical arthropathic changes identified. No prevertebral fluid collections or soft tissue inflammatory changes noted. The thyroid is normal in appearance. CT/CT cervical spine wo IV con IMPRESSION: CT head: *Normal. CT cervical spine: *Normal.
--- NOTE | ~2023-09-04 | CT_ITS ---
EXAMINATION: CT CERVICAL SPINE WITHOUT CONTRAST; UNENHANCED CT OF THE HEAD. CLINICAL INFORMATION: Neck pain status post trauma COMPARISON: None TECHNIQUE: Routine unenhanced CT of the head with multiple coronal and sagittal reformatted images; routine unenhanced CT of the cervical spine with multiple coronal and sagittal reformatted images. This CT examination was performed using dose optimization techniques as appropriate, variously including the following: *Automated exposure control *Adjustment of mA and/or kV according to patient size (this includes techniques or standardized protocols for targeted exams where dose is matched to indication/reason for exam; i.e. extremities or head) *Use of iterative reconstruction technique DLP: 933 mGy-cm FINDINGS: CT head: No intracranial hemorrhage, tumors or acute infarcts noted. The ventricles and sulci are normal in size and configuration. No focal parenchymal lesions of the brain or abnormal extra-axial fluid collections identified. The orbits and globes are normal in appearance. No significant opacification of the visualized paranasal sinuses, mastoid air cells and middle ear cavities. No extracranial soft tissue inflammatory changes visualized. CT cervical spine: No fractures or acute appearing subluxations identified. The visualized lung apices are clear. No vertebral body compression deformities or cervical arthropathic changes identified. No prevertebral fluid collections or soft tissue inflammatory changes noted. The thyroid is normal in appearance. CT/CT head/brain wo IV con IMPRESSION: CT head: *Normal. CT cervical spine: *Normal.
[2023-09-04 12:55] VITALS: BP 159/81; PULSE 76; RESP 16; TEMP 37; O2SAT 100; BMI 24.0
--- NOTE | 2023-09-04 12:58 | ED_ITS ---
HPI - General Adult General Chief complaint: Head Injury Stated complaint: Head inj/Thumb inj Time Seen by Provider: 09/04/23 13:50 Source: patient Mode of arrival: ambulatory Limitations: other ( patient not forthcoming or compliant with interview) History of Present Illness ED Provider: Rand Arshad PA-C HPI narrative: 23-year-old female presents the ER for evaluation of a headache and left thumb pain after a fan fell out of a window and hit her in the head 1 week ago. she denies losing consciousness at the time. She states she has ongoing left-sided headache and pain in the left thumb so came here for further evaluation. She denies any nausea, vomiting, lethargy, confusion. She has been wearing a brace on her left thumb from the pharmacy with improvement in pain. MD complaint: Headache and left thumb pain Onset (ago): week(s) (1) Location: head, left and upper extremity Radiation: non-radiation Severity: moderate Relieving factors: none Exacerbating factors: none Associated symptoms: denies other symptoms Treatments prior to arrival: none Related Data Previous Rx's ?Medication ?Instructions ?Recorded doxylamine succinate 25 mg tablet 25 mg PO BID PRN nausea and 10/30/20 vomiting #30 tabs pyridoxine (vitamin B6) 25 mg 25 mg PO BID PRN nausea and 10/30/20 tablet vomiting #30 tabs acetaminophen 500 mg tablet 500 mg PO Q6H PRN fever or pain 09/02/21 (Tylenol Extra Strength) #30 tabs nitrofurantoin 100 mg PO Q12H 5 days #10 caps 03/18/22 monohydrate/macrocrystals 100 mg capsule (Macrobid) cephalexin 500 mg capsule 500 mg PO QID 7 days #28 caps 10/11/22 ciprofloxacin 0.2 %-hydrocortisone 3 drp otic (ears) BID #10 mL 10/14/22 1 % ear drops,suspension (Cipro HC) Allergies Allergy/AdvReac Type Severity Reaction Status Date / Time No Known Allergies Allergy Verified 09/04/23 12:58 Review of Systems Review of Systems: Yes all other systems are reviewed and are negative PMFSH Past Medical History Medical History Miscarriage Heart murmur Social History Social History Patient Tobacco Use Status: Former Tobacco user Advance Directives: Yes Advance Directives Information Provided: Yes Advance Directives on File: No Physical Exam ED Vital Signs: Vital Signs - 24 hr 09/04/23 12:55 Temperature 98.6 F Pulse Rate 76 Respiratory Rate 16 Blood Pressure 159/81 H Pulse Oximetry 100 Oxygen Delivery Method Room Air BMI result Body Mass Index 24.0 Appearance: Alert. Oriented X3. No acute distress. HEENT: normal inspection. normocephalic, atraumatic. Normal inspection of the eyes and associated structures. Normal inspection of the nose and face. Normal inspection of the left ear and left tympanic membrane. Nontender left voodoo. CVS: Normal heart rate and rhythm. Pulses normal. Respiratory: No respiratory distress. Skin: Skin warm and dry. Normal skin color. Normal skin turgor. No rashes. Extremities: Normal inspection of all 4 extremities, no joint swelling. Left thumb with some mild tenderness at the base. No snuffbox tenderness. Normal range of motion. Neuro: Oriented X 3. No motor deficit. No sensory deficit. Course Course Course Narrative: This is a Rapid Medical Examination (RME) performed by Angelic Rivera PA-C in triage. Full HPI, ROS, assessment and treatment plan per primary provider in the Main ED. 23 yo female here for eval of left voodoo and left neck pain after a ceiling fan fell onto her head on (6 days ago). denies LOC. no thinners. endorses increased fatigue. denies vision changes, N/V. endorses left thumb pain as well which occurred when she attempted to catch the fan. TTP over left voodoo. no palpable deformity or step off. EOMs intact w/o entrapment. full ROM to left thumb intact with pain induced on flexion. 2+radial pulse. finger to thumb opposition intact. Plan: finger xr, CT head/neck Medical Decision Making Medical Decision Making MDM Narrative: 23-year-old female presents to the ER for evaluation of a left-sided headache and left thumb pain after a fan fell and hit her in the head 1 week ago. Patient very difficult while in the emergency department. She refused to stay in her room, she was ambulating around the hallways despite being asked multiple times to stay within her treatment room. She refused. She would only answer certain questions. She did allow for imaging which all returned unremarkable. At this time she is stable for discharge home, results were provided to the patient. Differential Diagnosis Differential Diagnoses: The differential diagnosis associated with the presentation includes Closed head injury, concussion, migraine, thumb sprain, thumb fracture, wrist sprain Independent Interpretation I performed an independent interpretation of an: Plain X-Ray and CT Scan Interpretation: CT head without any acute bleed or edema, agree with radiology read x-ray of the hand was normal, no appreciated fracture Radiology Impression Discussion of test interpretation with radiology: I have reviewed the radiologist's reading. Radiologist Impression: EXAMINATION: CT CERVICAL SPINE WITHOUT CONTRAST; UNENHANCED CT OF THE HEAD. CLINICAL INFORMATION: Neck pain status post trauma COMPARISON: None TECHNIQUE: Routine unenhanced CT of the head with multiple coronal and sagittal reformatted images; routine unenhanced CT of the cervical spine with multiple coronal and sagittal reformatted images. This CT examination was performed using dose optimization techniques as appropriate, variously including the following: *Automated exposure control *Adjustment of mA and/or kV according to patient size (this includes techniques or standardized protocols for targeted exams where dose is matched to indication/reason for exam; i.e. extremities or head) *Use of iterative reconstruction technique DLP: 933 mGy-cm FINDINGS: CT head: No intracranial hemorrhage, tumors or acute infarcts noted. The ventricles and sulci are normal in size and configuration. No focal parenchymal lesions of the brain or abnormal extra-axial fluid collections identified. The orbits and globes are normal in appearance. No significant opacification of the visualized paranasal sinuses, mastoid air cells and middle ear cavities. No extracranial soft tissue inflammatory changes visualized. CT cervical spine: No fractures or acute appearing subluxations identified. The visualized lung apices are clear. No vertebral body compression deformities or cervical arthropathic changes identified. No prevertebral fluid collections or soft tissue inflammatory changes noted. The thyroid is normal in appearance. CT/CT head/brain wo IV con IMPRESSION: CT head: *Normal. CT cervical spine: *Normal. EXAMINATION: XR FINGER, LEFT CLINICAL INFORMATION: Left thumb injury COMPARISON: None available. TECHNIQUE: Three views of the left thumb. FINDINGS: The bones and soft tissues are normal. No fracture. Alignment is anatomic. Joint spaces are maintained. XR/XR finger LT min 2V IMPRESSION: Unremarkable finger radiographs. External Record Review External record reviewed: Outpatient record, Prior outpatient labs and Prior outpatient radiology Prescription Management I considered prescription management with: Pain Medication Critical Care Time Critical Care Time Critical Care Time: No Discharge Plan Discharge Clinical Impression: Closed head injury, Left thumb sprain Patient Disposition: Home, Self-Care Instructions: Head Injury (ED) Additional Instructions: Your CT scans were normal. Your x-ray is normal You may have a mild concussion - treatment is rest - both mental and physical rest Avoid prolonged screen time Take motrin and/or tylenol as needed for headache and pain Follow up with your doctor If you develop new or worsening symptoms call 911 or come back to the ER for further evaluation. Prescriptions: No Action pyridoxine (vitamin B6) 25 mg tablet 25 mg PO BID PRN (Reason: nausea and vomiting) Qty: 30 0RF doxylamine succinate 25 mg tablet 25 mg PO BID PRN (Reason: nausea and vomiting) Qty: 30 0RF acetaminophen [Tylenol Extra Strength] 500 mg tablet 500 mg PO Q6H PRN (Reason: fever or pain) Qty: 30 0RF nitrofurantoin monohyd/m-cryst [Macrobid] 100 mg capsule 100 mg PO Q12H 5 Days Qty: 10 0RF Rx Instructions: must administer with a meal/food cephalexin 500 mg capsule 500 mg PO QID 7 Days Qty: 28 0RF Cipro HC 0.2-1 % drops,suspension 3 drp otic (ears) BID Qty: 10 0RF Referrals: [facility] [Provider Group] Interventions: ED Discharge Assessment Last Done: 09/04/23 16:10 Discharge Date/Time: 09/04/23 16:13 Print Language: Vietnamese
--- NOTE | 2023-09-04 16:07 | PC.NURSE ---
Patient refused vitals and refused to stay in her room. Patient asked repeatedly to stay in her room kept pacing in hallway and started cursing because she was ready to leave. 1 year old in next room over told to stop cursing and stay in room. given discharge paperwork and sent.
[2023-09-04 16:10] VITALS: BP 00/0; PULSE 0; RESP 0; TEMP -17.7; TEMP 0; O2SAT 0
== END 2023-09-04 16:13 | disposition home or self-care (01) ==
PROVIDERS: Emergency Provider Emergency Medicine
DX: S09.90XA Unspecified injury of head, initial encounter (principal); S63.602A Unspecified sprain of left thumb, initial encounter; W20.8XXA Other cause of strike by thrown, projected or falling object, initial encounter; Y93.89 Activity, other specified; Y92.9 Unspecified place or not applicable; Y99.9 Unspecified external cause status; R51.9 Headache, unspecified; M79.645 Pain in left finger(s); M54.2 Cervicalgia
CPT/HCPCS: 70450; 72125; 73140; 99282; 99284

== ENCOUNTER 2024-03-07 06:24 | Emergency (ER) | payer SELFPAY ==
[2024-03-07 06:30] VITALS: BP 136/86; PULSE 75; RESP 16; TEMP 36.9; O2SAT 100; BMI 24.0
--- NOTE | 2024-03-07 06:59 | PC.NURSE ---
report given Geri WILDER
[2024-03-07 07:35] LABS: MANUAL DIFF FLAG NO
[2024-03-07 07:36] LABS: Basophils Percent Auto 0.7 % (0-2); Eosinophils Percent Auto 0.5 % (0-4); Hematocrit 44.1 % (37.0-47.0); Hemoglobin 15.4 g/dl (12.0-16.0); Imm Gran Abs Auto 0.01 X10*3/uL (0.00-0.03); Imm Gran Pct Auto 0.2 % (0.0-0.4); Lymphocytes Absolute Auto 1.7 X10*3/uL (1.2-4.9); Lymphocytes Percent Auto 38.8 % (20-40); Mean Corpuscular HGB Conc 34.9 g/dl (31.0-35.0); Mean Corpuscular Hemoglobin 31.2 pg (27.0-33.0); Mean Corpuscular Volume 89.5 fL (80.0-98.0); Monocytes Absolute Auto 0.3 X10*3/uL (0.1-1.2); Monocytes Percent Auto 7.8 % (2-11); Neutrophils Absolute Auto 2.3 x10*3/uL (2.0-8.3); Platelet Count 276 X10*3/uL (160-400); Red Blood Count 4.93 X10*6/uL (4.20-5.50); Red Cell Distribution Width 12.8 % (11.0-16.0); White Blood Count 4.4 X10*3/uL (4.8-10.8)
--- NOTE | 2024-03-07 07:47 | ED_ITS ---
HPI - Female Genitourinary General Chief complaint: Vaginal Bleeding Stated complaint: gen med Time Seen by Provider: 03/07/24 07:47 Source: patient Mode of arrival: ambulatory Limitations: no limitations History of Present Illness ED Provider: Rand Arshad PA-C HPI Narrative: 24 yo female with history of chronic abdominal pain presents to the ER for evaluation of abdominal pain and vaginal bleeding. She reports LMP earlier this month and she wasnt due for her period for another 10 days. Bleeding started yesterday. She went through 8 pads yesterday. She has intermittent cramping in her lower abdomen. No N/V. She has been constipated. Last BM yesterday. No vaginal discharge. Last sexual activity was in July. She has previously been on control pills for abnormal and irregular vaginal bleeding but she states it didnt agree with my body. She has no health insurance and has no [facility] RN. She intermittently goes to [facility] for ongoing bleeding and pain issues over the last several years. She feels like she has endometriosis but no one will diagnose her with it. MD elicited complaint: vaginal bleeding Onset (ago): day(s) (1) Location of symptoms: vaginal Severity: moderate Quality of pain: cramping Consistency: intermittent Vaginal discharge: none Vaginal bleeding: moderate Exacerbating factors: none Relieving factors: none Associated symptoms: abdominal pain Treatment prior to arrival: none Sexual activity: No Patient : No Related Data Previous Rx's ?Medication ?Instructions ?Recorded doxylamine succinate 25 mg tablet 25 mg PO BID PRN nausea and 10/30/20 vomiting #30 tabs pyridoxine (vitamin B6) 25 mg 25 mg PO BID PRN nausea and 10/30/20 tablet vomiting #30 tabs acetaminophen 500 mg tablet 500 mg PO Q6H PRN fever or pain 09/02/21 (Tylenol Extra Strength) #30 tabs nitrofurantoin 100 mg PO Q12H 5 days #10 caps 03/18/22 monohydrate/macrocrystals 100 mg capsule (Macrobid) cephalexin 500 mg capsule 500 mg PO QID 7 days #28 caps 10/11/22 ciprofloxacin 0.2 %-hydrocortisone 3 drp otic (ears) BID #10 mL 10/14/22 1 % ear drops,suspension (Cipro HC) Allergies Allergy/AdvReac Type Severity Reaction Status Date / Time No Known Allergies Allergy Verified 03/07/24 06:35 Review of Systems 2 Review of Systems: Yes all other systems are reviewed and are negative [facility] Past Medical History Medical History Miscarriage Heart murmur Social History Social History Patient Tobacco Use Status: Former Tobacco user Smoked in Last 30 Days: No Advance Directives: No Advance Directives Information Provided: Yes Do you have a plan to hurt others: No Plan Patient : No Physical Exam 2 Vital Signs: Vital Signs: Last Vital Signs Temp 98.4 F 03/07/24 09:10 Pulse 70 03/07/24 09:10 Resp 18 03/07/24 09:10 BP 130/82 03/07/24 09:10 Pulse Ox 100 03/07/24 09:10 O2 Del Method Room Air 03/07/24 09:10 BMI result Body Mass Index 24.0 Appearance: Alert. Oriented X3. No acute distress. Head: normocephalic, atraumatic. Eyes: Pupils equal, round and reactive to light. ENT: Pharynx normal. No tonsillar swelling or exudate. Neck: Normal inspection. Neck supple. CVS: Normal heart rate and rhythm. Pulses normal. Respiratory: No respiratory distress. Breath sounds normal. Abdomen: Soft and nontender. +BS x4 pelvic deferred Skin: Skin warm and dry. Normal skin color. Normal skin turgor. No rashes. Extremities: No lower extremity edema. No joint swelling. Neuro/psych: Oriented X 3. grossly normal, nonfocal. CN II-XII intact. Normal speech and cognition. Medical Decision Making Medical Decision Making MDM Narrative: 24 yo female with history of chronic abdominal pain presenting with abdominal pain and vaginal bleeding. she has been seen by her doctor, 6 different hospitals as well as [facility]ED[facility] RN in the past. She has had an ultrasound and a coloposcopy in the past. She has been seen here multiple times for abdominal pain. her exam is unremarkable, no abdominal tenderness at this time. She has history of similar presentations in the past. Lab work is reassuring with normal H& H. She is not . Patient most likely has dysfunctional uterine bleeding, not interested in hormonal therapy. She has had pelvic ultrasounds, colposcopies, workup in the past. financial assistance card provided to the patient. Importance of OBGYN follow-up as this is a chronic issue for her and needs specialist monitoring and treatment. Comfortable discharge home with outpatient follow-up. Patient agrees with plan Differential Diagnosis Differential Diagnoses: The differential diagnosis associated with the presentation includes dysfunctional uterine bleeding, , fibroids, normal menses, uterine polyps, adenomyosis Lab Data MDM Lab Attestation statement: I reviewed the patient's lab results. normal H/H, normal platelets 03/07/24 07:31 03/07/24 07:31 Labs: Lab Results 03/07/24 Range/Units 07:31 WBC 4.4 L (4.8-10.8) X10*3/uL RBC 4.93 (4.20-5.50) X10*6/uL Hgb 15.4 (12.0-16.0) g/dl Hct 44.1 (37.0-47.0) % MCV 89.5 (80.0-98.0) fL MCH 31.2 (27.0-33.0) pg MCHC 34.9 (31.0-35.0) g/dl RDW 12.8 (11.0-16.0) % Plt Count 276 (160-400) X10*3/uL MPV 9.0 L (9.4-12.3) fL Immature Gran % (Auto) 0.2 (0.0-0.4) % Neut % (Auto) 52.0 (45-73) % Lymph % (Auto) 38.8 (20-40) % [place] % (Auto) 7.8 (2-11) % Eos % (Auto) 0.5 (0-4) % Baso % (Auto) 0.7 (0-2) % Lymph # (Auto) 1.7 (1.2-4.9) X10*3/uL [place] # (Auto) 0.3 (0.1-1.2) X10*3/uL Eos # (Auto) 0.0 (0.0-0.4) X10*3/uL Baso # (Auto) 0.0 (0.0-0.2) X10*3/uL Abs Immat Gran (auto) 0.01 (0.00-0.03) X10*3/uL Absolute Neuts (auto) 2.3 (2.0-8.3) x10*3/uL Absolute Nucleated RBC 0.000 (0.0-0.012) X10*3/uL Nucleated RBC % (auto) 0.0 (0.0-0.2) /100WBC Sodium 139 (135-145) mmol/L Potassium 4.1 (3.3-5.1) mmol/L Chloride 109 H (96-108) mmol/L Carbon Dioxide 19 L (22-29) mmol/L Anion Gap 15 (12-20) BUN 9 (9-16) mg/dL Creatinine 0.86 (0.5-1.4) mg/dL Estim Creat Clear Calc 85.6 Estimated GFR > 60 Random Glucose 92 (60-115) mg/dL Calcium 9.8 (8.4-10.2) mg/dL Total Bilirubin 1.1 H (0.0-1.0) mg/dL AST 22 (5-31) U/L ALT 11 (0-31) U/L Alkaline Phosphatase 53 (39-117) U/L Total Protein 8.1 H (6.5-8.0) g/dL Albumin 4.7 (3.5-5.0) g/dL Beta HCG, Quant < 2 mIU/mL External Record Review External record reviewed: Outpatient record, Prior outpatient labs and Prior outpatient radiology Prescription Management I considered prescription management with: Pain Medication and Other (OCP) Critical Care Time Critical Care Time Critical Care Time: No Discharge Plan Discharge Clinical Impression: Dysfunctional uterine bleeding Patient Disposition: Home, Self-Care Instructions: Dysfunctional Uterine Bleeding (ED) Additional Instructions: your blood counts today were stable highly recommend that you follow up with an [facility] RN for further evaluation and treatment take motrin and tylenol as needed for pain If you develop new or worsening symptoms call 911 or come back to the ER for further evaluation. Prescriptions: No Action pyridoxine (vitamin B6) 25 mg tablet 25 mg PO BID PRN (Reason: nausea and vomiting) Qty: 30 0RF doxylamine succinate 25 mg tablet 25 mg PO BID PRN (Reason: nausea and vomiting) Qty: 30 0RF acetaminophen [Tylenol Extra Strength] 500 mg tablet 500 mg PO Q6H PRN (Reason: fever or pain) Qty: 30 0RF nitrofurantoin monohyd/m-cryst [Macrobid] 100 mg capsule 100 mg PO Q12H 5 Days Qty: 10 0RF Rx Instructions: must administer with a meal/food cephalexin 500 mg capsule 500 mg PO QID 7 Days Qty: 28 0RF Cipro HC 0.2-1 % drops,suspension 3 drp otic (ears) BID Qty: 10 0RF Referrals: Bruno Osborn MD [Physician] - Stand Alone Forms: Work/School Release Interventions: ED Discharge Assessment Last Done: 03/07/24 09:10 Discharge Date/Time: 03/07/24 09:10 Print Language: Lithuanian
[2024-03-07 07:59] LABS: HCG Quantitative < 2 mIU/mL
[2024-03-07 08:00] LABS: Alanine Aminotransferase 11 U/L (0-31); Albumin Level 4.7 g/dL (3.5-5.0); Anion Gap 15 (12-20); Aspartate Amino Transferase 22 U/L (5-31); Bilirubin Total 1.1 mg/dL (0.0-1.0); Blood Urea Nitrogen 9 mg/dL (9-16); Calcium 9.8 mg/dL (8.4-10.2); Carbon Dioxide 19 mmol/L (22-29); Chloride 109 mmol/L (96-108); Creatinine Clr Calc Pharmacy 85.6; Estimated Glomerular Filt Rate > 60; Glucose Random 92 mg/dL (60-115); Potassium 4.1 mmol/L (3.3-5.1); Sodium 139 mmol/L (135-145); Total Protein 8.1 g/dL (6.5-8.0)
[2024-03-07 08:17] LABS: Alkaline Phosphatase 53 U/L (39-117)
[2024-03-07 09:09] VITALS: BP 130/82; PULSE 70; RESP 18; TEMP 36.9; O2SAT 100
[2024-03-07 09:10] VITALS: BP 130/82; PULSE 70; RESP 18; TEMP 36.9; O2SAT 100
== END 2024-03-07 09:10 | disposition home or self-care (01) ==
PROVIDERS: Emergency Provider Emergency Medicine
DX: N93.8 Other specified abnormal uterine and vaginal bleeding (principal); R10.30 Lower abdominal pain, unspecified
CPT/HCPCS: 36415; 80053; 84702; 85025; 99283; 99284

== ENCOUNTER 2024-03-18 11:44 | Emergency (ER) | payer SELFPAY ==
[2024-03-18 12:28] VITALS: BP 154/108; PULSE 99; RESP 18; TEMP 36.9; O2SAT 99; BMI 24.9
[2024-03-18 12:33] VITALS: BP 124/85
--- NOTE | 2024-03-18 12:33 | ED_ITS ---
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 No travel or procedures. She did cough so hard she vomited. She is not on OCPs, sh has never used an inhaler. She is able to eat and drink. MD complaint: URI Onset (ago): day(s) (5) Location: chest Radiation: non-radiation Severity: moderate Quality: aching Pain Consistency: intermittent Relieving factors: none Exacerbating factors: other (cough) Associated symptoms: cough and other (runny nose and sore throat) Treatments prior to arrival: none Related Data Previous Rx's ?Medication ?Instructions ?Recorded doxylamine succinate 25 mg tablet 25 mg PO BID PRN nausea and 10/30/20 vomiting #30 tabs pyridoxine (vitamin B6) 25 mg 25 mg PO BID PRN nausea and 10/30/20 tablet vomiting #30 tabs acetaminophen 500 mg tablet 500 mg PO Q6H PRN fever or pain 09/02/21 (Tylenol Extra Strength) #30 tabs nitrofurantoin 100 mg PO Q12H 5 days #10 caps 03/18/22 monohydrate/macrocrystals 100 mg capsule (Macrobid) cephalexin 500 mg capsule 500 mg PO QID 7 days #28 caps 10/11/22 ciprofloxacin 0.2 %-hydrocortisone 3 drp otic (ears) BID #10 mL 10/14/22 1 % ear drops,suspension (Cipro HC) azithromycin 250 mg tablet See Rx Instructions PO .COMPLEX #6 03/18/24 tabs Allergies Allergy/AdvReac Type Severity Reaction Status Date / Time No Known Allergies Allergy Verified 03/18/24 12:30 Review of Systems Review of Systems: Constitutional : No Fever, No Chills ENT/Mouth : No Hoarseness, pos sore throat, pos Rhinorrhea Eyes: No Redness, No Discharge, No Vision Changes Cardiovascular : No Chest Pain, no SOB Respiratory : positive Cough, No Sputum, no Wheezing, Gastrointestinal : No Nausea, No Vomiting, No Diarrhea, No abdominal Pain Genitourinary : No Dysuria, No Hematuria Musculoskeletal : No joint pain, No Myalgias Skin : No rash Neuro : No Weakness, No Numbness, No Headache All other systems reviewed and are negative [facility] Past Medical History Attestation statement: The following information was validated with the patient. Source: old records reviewed Medical History Miscarriage Heart murmur Social History Social History Patient Tobacco Use Status: Former Tobacco user Advance Directives: No Do you have a plan to hurt others: No Plan Physical Exam ED Vital Signs: Vital Signs - 24 hr 03/18/24 12:28 03/18/24 12:33 Temperature 98.4 F Pulse Rate 99 Respiratory Rate 18 Blood Pressure 154/108 H 124/85 Pulse Oximetry 99 BMI result Body Mass Index 24.9 Appearance: Alert. Oriented X3. No acute distress. Eyes: Pupils equal, round and reactive to light. ENT: Pharynx normal. no exudates or swelling. Neck: Normal inspection. Neck supple. CVS: Normal heart rate and rhythm. Pulses normal. Respiratory: No respiratory distress. Breath sounds normal. Abdomen: Soft and non-tender. Skin: Skin warm and dry. Normal skin color. . Extremities: No lower extremity edema. Neuro: Oriented X 3. No motor deficit. No sensory deficit. Course Course Course Narrative: This is a rapid medical exam performed by Talisha Byrd PA-C. Patient is a 24-year-old female who presents with sore throat x4 days. Associated nasal congestion, hoarseness of her voice, cough and postnasal drip. Oropharynx is mildly erythematous without exudate, uvula midline, no trismus no drooling. We will screen for strep and obtain a respiratory panel. The patient is hemodynamically stable and able to return to the weight room pending her full medical assessment. Medical Decision Making Medical Decision Making MDM Narrative: 24 yo female otherwise healthy here with runny nose, sore, throat, hard cough that has caused her to vomit. No travel or procedures, no OCP use she is PERC negative on exam I did not hear the cough and she is not wheezing or labored. Suspect bronchitis, URI, strep throat - will put her out of work and start on zpak. She is overall well appearing. Differential Diagnosis Differential Diagnoses: The differential diagnosis associated with the presentation includes strep throat, bronchitis, pneumonia Admission/Observation Consideration of admission/observation: Escalation of care including admission/observation considered not toxic, no hypoxia no work of breathing can be managed as outpatient Lab Data MDM Lab Attestation statement: I reviewed the patient's lab results. Labs: Lab Results 03/18/24 Range/Units 12:35 Influenza Type A (PCR) NEGATIVE (Negative) Influenza Type B (PCR) NEGATIVE (Negative) RSV RNA Qual (PCR) NEGATIVE (Negative) SARS-CoV-2 RNA (RT-PCR) NEGATIVE (Negative) S. pyogenes GrpA LEILA Negative (Negative) External Record Review External record reviewed: Outpatient record Prescription Management I considered prescription management with: Antibiotic Discharge Plan Discharge Clinical Impression: Bronchitis Patient Disposition: Home, Self-Care Instructions: Acute Bronchitis (ED) Additional Instructions: strep is negative, return for any worsening symptoms such as you cannot walk to the bathroom because you are so short of breath, or unable to eat or drink rest and stay hydrated On azithromycin, call your provider if you develop new ringing in your ears, new problems hearing, dizziness, palpitations, abdominal pain, nausea, or diarrhea. NEGATIVE FOR FOR FLU, COVID, RSV, STREP Prescriptions: New azithromycin 250 mg tablet See Rx Instructions .ROUTE .COMPLEX Qty: 6 0RF Rx Instructions: For 250 mg dose pack: take 500 mg today (day 1), then 250 mg for 4 days (days 2-5) No Action pyridoxine (vitamin B6) 25 mg tablet 25 mg PO BID PRN (Reason: nausea and vomiting) Qty: 30 0RF doxylamine succinate 25 mg tablet 25 mg PO BID PRN (Reason: nausea and vomiting) Qty: 30 0RF acetaminophen [Tylenol Extra Strength] 500 mg tablet 500 mg PO Q6H PRN (Reason: fever or pain) Qty: 30 0RF nitrofurantoin monohyd/m-cryst [Macrobid] 100 mg capsule 100 mg PO Q12H 5 Days Qty: 10 0RF Rx Instructions: must administer with a meal/food cephalexin 500 mg capsule 500 mg PO QID 7 Days Qty: 28 0RF Cipro HC 0.2-1 % drops,suspension 3 drp otic (ears) BID Qty: 10 0RF Stand Alone Forms: Work/School Release Print Language: Niuean
[2024-03-18 13:04] LABS: IDNOW Serial# 08D9AD1C; Strep A Nucleic Acid Negative (Negative)
[2024-03-18 13:18] LABS: Influenza A PCR NEGATIVE (Negative); Influenza B PCR NEGATIVE (Negative); Resp Syncy Virus RNA Qual PCR NEGATIVE (Negative); SARS COV2 PCR INHOUSE NEGATIVE (Negative)
[2024-03-18 13:57] VITALS: BP 124/85; PULSE 99; RESP 18; TEMP 36.9; O2SAT 99
== END 2024-03-18 13:57 | disposition home or self-care (01) ==
PROVIDERS: Physician Assistant Medical; Emergency Provider Emergency Medicine
DX: J40 Bronchitis, not specified as acute or chronic (principal); Z03.818 Encounter for observation for suspected exposure to other biological agents ruled out; R05.9 Cough, unspecified; J02.9 Acute pharyngitis, unspecified
CPT/HCPCS: 0241U; 87651; 99282; 99283

== ENCOUNTER 2024-03-25 23:03 | Emergency (ER) | payer SELFPAY ==
--- NOTE | ~2024-03-25 | XR_ITS ---
EXAMINATION: XR CHEST CLINICAL INFORMATION: cough, shortness of breath COMPARISON: Chest 03/18/2022. TECHNIQUE: 2 views of the chest were obtained. FINDINGS: Normal appearance of the cardiomediastinal structures. No effusions or pneumothoraces. Normal pattern of pulmonary vasculature. No focal pulmonary consolidation. No skeletal abnormalities identified. XR/XR chest 2V IMPRESSION: Normal chest. Lungs clear. Electronically signed by: Abilio Hurst MD 03/26/2024 02:30 AM ABRAHAM
[2024-03-25 23:16] VITALS: BP 131/87; PULSE 88; RESP 16; TEMP 37.1; O2SAT 98; BMI 23.4
--- NOTE | 2024-03-26 00:23 | ED_ITS ---
HPI - URI/Sore Throat General Chief Complaint: Dyspnea Stated Complaint: bronchitis/last week given meds/not feeling better Time Seen by Provider: 03/26/24 00:23 Source: patient Mode of arrival: ambulatory Limitations: no limitations History of Present Illness ED Provider: HPI Narrative: You no significant past medical history was seen here on 03/18 for cough and congestion and treated with Z-Addison comes back here again as still not getting better having more cough more phlegm coming up no fever no chills Related Data Previous Rx's ?Medication ?Instructions ?Recorded doxylamine succinate 25 mg tablet 25 mg PO BID PRN nausea and 10/30/20 vomiting #30 tabs pyridoxine (vitamin B6) 25 mg 25 mg PO BID PRN nausea and 10/30/20 tablet vomiting #30 tabs acetaminophen 500 mg tablet 500 mg PO Q6H PRN fever or pain 09/02/21 (Tylenol Extra Strength) #30 tabs nitrofurantoin 100 mg PO Q12H 5 days #10 caps 03/18/22 monohydrate/macrocrystals 100 mg capsule (Macrobid) cephalexin 500 mg capsule 500 mg PO QID 7 days #28 caps 10/11/22 ciprofloxacin 0.2 %-hydrocortisone 3 drp otic (ears) BID #10 mL 10/14/22 1 % ear drops,suspension (Cipro HC) azithromycin 250 mg tablet See Rx Instructions PO .COMPLEX #6 03/18/24 tabs benzonatate 200 mg capsule 200 mg PO TID PRN cough #20 caps 03/26/24 Allergies Allergy/AdvReac Type Severity Reaction Status Date / Time No Known Allergies Allergy Verified 03/25/24 23:19 Review of Systems Review of Systems: Yes all other systems are reviewed and are negative [facility] Past Medical History Medical History Miscarriage Heart murmur Social History Social History Patient Tobacco Use Status: Former Tobacco user Smoked in Last 30 Days: No Use of substances other than those prescribed or required for medical reasons: No Advance Directives: No Advance Directives Information Provided: No Physical Exam Vital Signs: Vital Signs: Last Vital Signs Temp 98.3 F 03/26/24 01:36 Pulse 73 03/26/24 01:36 Resp 16 03/26/24 01:36 BP 130/77 03/26/24 01:36 Pulse Ox 98 03/26/24 01:36 O2 Del Method Room Air 03/26/24 01:36 BMI result Body Mass Index 23.4 Appearance: Alert. Oriented X3. No acute distress. ENT: Pharynx normal. Oral Mucosa moist Neck: Normal inspection. Neck supple. CVS: Normal heart rate and rhythm. Pulses normal. Respiratory: No respiratory distress. Equal air entry bilateral, no wheezing/rales/rhonchi Abdomen: Soft and nontender. Bowel sounds are present, no mass palpable, no CVA tenderness Skin: Skin warm and dry. Normal skin color. Normal skin turgor. Extremities: No lower extremity edema. No calf tenderness Neuro: Oriented X 3. No motor deficit. Medical Decision Making Medical Decision Making [facility] Narrative: Patient with mild bronchitis lungs are clear likely viral chest x-ray negative Lab Data [facility] Lab Attestation statement: I reviewed the patient's lab results. Labs: Lab Results 03/25/24 Range/Units 23:51 Influenza Type A (PCR) NEGATIVE (Negative) Influenza Type B (PCR) NEGATIVE (Negative) RSV RNA Qual (PCR) NEGATIVE (Negative) SARS-CoV-2 RNA (RT-PCR) NEGATIVE (Negative) Independent Interpretation I performed an independent interpretation of an: Plain X-Ray Interpretation: NAD Discharge Plan Discharge Clinical Impression: Acute viral bronchitis Patient Disposition: Home, Self-Care Instructions: Acute Bronchitis (ED) Additional Instructions: Cough drops as prescribed Drink plenty of fluids your COVID flu RSV negative chest x-ray also negative for any infiltrate or pneumonia Prescriptions: New benzonatate 200 mg capsule 200 mg PO TID PRN (Reason: cough) Qty: 20 0RF No Action pyridoxine (vitamin B6) 25 mg tablet 25 mg PO BID PRN (Reason: nausea and vomiting) Qty: 30 0RF doxylamine succinate 25 mg tablet 25 mg PO BID PRN (Reason: nausea and vomiting) Qty: 30 0RF acetaminophen [Tylenol Extra Strength] 500 mg tablet 500 mg PO Q6H PRN (Reason: fever or pain) Qty: 30 0RF nitrofurantoin monohyd/m-cryst [Macrobid] 100 mg capsule 100 mg PO Q12H 5 Days Qty: 10 0RF Rx Instructions: must administer with a meal/food cephalexin 500 mg capsule 500 mg PO QID 7 Days Qty: 28 0RF Cipro HC 0.2-1 % drops,suspension 3 drp otic (ears) BID Qty: 10 0RF azithromycin 250 mg tablet See Rx Instructions .ROUTE .COMPLEX Qty: 6 0RF Rx Instructions: For 250 mg dose pack: take 500 mg today (day 1), then 250 mg for 4 days (days 2-5) Stand Alone Forms: Work/School Release Interventions: ED Discharge Assessment Last Done: 03/26/24 01:36 Print Language: Burkinan
[2024-03-26 00:37] LABS: Influenza A PCR NEGATIVE (Negative); Influenza B PCR NEGATIVE (Negative); Resp Syncy Virus RNA Qual PCR NEGATIVE (Negative); SARS COV2 PCR INHOUSE NEGATIVE (Negative)
[2024-03-26 01:24] VITALS: BP 130/77; PULSE 73; RESP 16; TEMP 36.8; O2SAT 99
--- NOTE | 2024-03-26 01:35 | PC.NURSE ---
Reviewed discharge instructions with pt. pt verbalized understanding, no sign of distress upon discharge, pt had a steady gate
[2024-03-26 01:36] VITALS: BP 130/77; PULSE 73; RESP 16; TEMP 36.8; O2SAT 98
== END 2024-03-26 02:47 | disposition home or self-care (01) ==
LOC: HO.ED 03-26 01:55
PROVIDERS: Emergency Provider Internal Medicine
DX: J20.8 Acute bronchitis due to other specified organisms (principal); Z03.818 Encounter for observation for suspected exposure to other biological agents ruled out; R05.9 Cough, unspecified
CPT/HCPCS: 0241U; 71046; 99283; 99284

== ENCOUNTER 2024-04-24 06:03 | Emergency (ER) | payer SELFPAY ==
--- NOTE | ~2024-04-24 | CT_ITS ---
EXAMINATION: CT ABDOMEN AND PELVIS WITH CONTRAST CLINICAL INFORMATION: Right lower quadrant pain, nausea, vomiting, diarrhea. COMPARISON: 08/16/2023, 03/18/2022. TECHNIQUE: Multidetector volumetric images were obtained from the superior aspect of the liver through the pubic symphysis following administration 85 mL of Omnipaque 350 intravenous contrast. Sagittal and coronal reformatted images were obtained on the technologist's workstation. Oral contrast: No This CT examination was performed using dose optimization techniques as appropriate, variously including the following: *Automated exposure control *Adjustment of mA and/or kV according to patient size (this includes techniques or standardized protocols for targeted exams where dose is matched to indication/reason for exam; i.e. extremities or head) *Use of iterative reconstruction technique DLP = 397 mGy^cm FINDINGS: Moderate respiratory motion degradation in the mid aspect of the abdomen. This limits sensitivity of the study. LUNG BASES: The visualized lung bases are unremarkable. LIVER, GALLBLADDER, AND BILIARY TREE: The liver is normal in size, shape, and attenuation. No focal hepatic lesion or biliary ductal dilatation is present. The gallbladder is unremarkable with no evidence of radiopaque gallstones, gallbladder wall thickening, or obvious pericholecystic inflammatory changes. PANCREAS: Unremarkable. SPLEEN: Unremarkable. ADRENAL GLANDS: Unremarkable. KIDNEYS AND URETERS: The kidneys are normal in size, shape, and attenuation. No hydronephrosis, hydroureter, or obstructing calculi seen. There are 2 mm nonobstructing calculi in both kidneys. No perinephric stranding. BLADDER: Unremarkable. GASTROINTESTINAL TRACT: The small and large bowel are unremarkable. The appendix is normal. ABDOMINAL WALL: No significant hernia is appreciated. LYMPH NODES: Normal. VASCULAR: Unremarkable. PELVIC VISCERA: -There is a 2.2 cm follicular cyst in the right ovary. Left ovary is normal. Uterus and adnexal structures are normal. OSSEOUS STRUCTURES: Unremarkable. CT/CT abdomen pelvis w IV con IMPRESSION: 1. Motion degradation as detailed. No acute findings in the abdomen or pelvis. The appendix is normal. 2. There is a 2.2 cm follicular cyst right ovary. 3. Nonobstructing 2 mm calculi in both kidneys. Electronically signed by: Kamron Cotto MD 04/24/2024 12:44 PM [facility] [place]
[2024-04-24 06:06] VITALS: BP 123/87; PULSE 107; RESP 18; TEMP 37.1; O2SAT 99; BMI 24.0
[2024-04-24 06:26] LABS: MANUAL DIFF FLAG NO
[2024-04-24 06:27] LABS: Basophils Percent Auto 0.8 % (0-2); Eosinophils Percent Auto 0.8 % (0-4); Hematocrit 40.8 % (37.0-47.0); Hemoglobin 14.1 g/dl (12.0-16.0); Imm Gran Abs Auto 0.01 X10*3/uL (0.00-0.03); Imm Gran Pct Auto 0.3 % (0.0-0.4); Lymphocytes Absolute Auto 1.6 X10*3/uL (1.2-4.9); Lymphocytes Percent Auto 43.9 % (20-40); Mean Corpuscular HGB Conc 34.6 g/dl (31.0-35.0); Mean Corpuscular Hemoglobin 31.1 pg (27.0-33.0); Mean Corpuscular Volume 90.1 fL (80.0-98.0); Mean Platelet Volume 9.2 fL (9.4-12.3); Monocytes Absolute Auto 0.3 X10*3/uL (0.1-1.2); Monocytes Percent Auto 8.8 % (2-11); Neutrophils Absolute Auto 1.7 x10*3/uL (2.0-8.3); Neutrophils Percent Auto 45.4 % (45-73); Platelet Count 218 X10*3/uL (160-400); Red Blood Count 4.53 X10*6/uL (4.20-5.50); Red Cell Distribution Width 12.5 % (11.0-16.0); White Blood Count 3.7 X10*3/uL (4.8-10.8)
[2024-04-24 06:42] LABS: Alanine Aminotransferase 18 U/L (0-31); Albumin Level 4.2 g/dL (3.5-5.0); Alkaline Phosphatase 48 U/L (39-117); Anion Gap 13 (12-20); Aspartate Amino Transferase 44 U/L (5-31); Bilirubin Total 0.7 mg/dL (0.0-1.0); Blood Urea Nitrogen 8 mg/dL (9-16); Calcium 8.7 mg/dL (8.4-10.2); Carbon Dioxide 22 mmol/L (22-29); Chloride 109 mmol/L (96-108); Creatinine Clr Calc Pharmacy 96.8; Estimated Glomerular Filt Rate > 60; Glucose Random 93 mg/dL (60-115); Potassium 4.2 mmol/L (3.3-5.1); Sodium 140 mmol/L (135-145); Total Protein 7.5 g/dL (6.5-8.0)
[2024-04-24 07:04] LABS: Influenza A PCR NEGATIVE (Negative); Influenza B PCR NEGATIVE (Negative); Resp Syncy Virus RNA Qual PCR NEGATIVE (Negative); SARS COV2 PCR INHOUSE NEGATIVE (Negative)
[2024-04-24 08:36] LABS: Appearance Urine Clear; Color Urine Yellow; Glucose Urine UA Negative (Negative); Leukocyte Esterase Urine Small (1+) (Negative); Nitrite Urine Negative (Negative); Specific Gravity - Urine 1.025 (1.005-1.025); UMIC TRIGGER UACC YES; Urine Blood Negative (Negative); Urine Ketones Negative (Negative); Urine Protein Negative (Neg-Trace)
[2024-04-24 08:37] LABS: UPreg QC Valid YES; Urine Pregnancy NEGATIVE (NEGATIVE)
[2024-04-24 08:48] LABS: Bacteria Urine None Seen (None Seen); RBC Urine 0-2 /HPF (0-2); Squamous Epithelial Cell Urine 0-2 /HPF (0-2); UACC Culture Trigger YES
[2024-04-24 09:04] LABS: Lipase 11 U/L (8-78); Magnesium 2.2 mg/dL (1.6-2.6)
[2024-04-24] MEDS: Ketorolac Tromethamine 15 MG/ML VIAL IVPUSH (09:41)
[2024-04-24] MEDS: 0.9 % Sodium Chloride 1,000 ML 999 ML IV (09:41)
[2024-04-24] MEDS: ondansetron HCL 4 MG/2 ML VIAL IVPUSH (09:41)
[2024-04-24] MEDS: iohexoL 350 MG/ML 100 ML INFUS..BTL 85 ML IV (10:01)
[2024-04-24 10:17] VITALS: BP 139/80; PULSE 69; RESP 13; TEMP 36.7; O2SAT 100
--- NOTE | 2024-04-24 10:23 | ED_ITS ---
HPI - Abdominal Pain General Chief Complaint: Abdominal Pain Stated Complaint: stomach pain Time Seen by Provider: 04/24/24 08:26 Source: patient, RN notes reviewed and old records reviewed Mode of arrival: ambulatory History of Present Illness ED Provider: Miryam Crane PA-C HPI narrative: 24-year-old female with no significant past medical history presenting to the ED complaining of abdominal pain, nausea, vomiting, diarrhea x3 days. States vomiting has improved however reports continued pain. Denies fever, chills, dysuria/hematuria, travel, sick contacts. Admits to decreased p.o. intake Related Data Previous Rx's ?Medication ?Instructions ?Recorded doxylamine succinate 25 mg tablet 25 mg PO BID PRN nausea and 10/30/20 vomiting #30 tabs pyridoxine (vitamin B6) 25 mg 25 mg PO BID PRN nausea and 10/30/20 tablet vomiting #30 tabs acetaminophen 500 mg tablet 500 mg PO Q6H PRN fever or pain 09/02/21 (Tylenol Extra Strength) #30 tabs nitrofurantoin 100 mg PO Q12H 5 days #10 caps 03/18/22 monohydrate/macrocrystals 100 mg capsule (Macrobid) cephalexin 500 mg capsule 500 mg PO QID 7 days #28 caps 10/11/22 ciprofloxacin 0.2 %-hydrocortisone 3 drp otic (ears) BID #10 mL 10/14/22 1 % ear drops,suspension (Cipro HC) azithromycin 250 mg tablet See Rx Instructions PO .COMPLEX #6 03/18/24 tabs benzonatate 200 mg capsule 200 mg PO TID PRN cough #20 caps 03/26/24 Allergies Allergy/AdvReac Type Severity Reaction Status Date / Time No Known Allergies Allergy Verified 04/24/24 06:07 Review of Systems Review of Systems Yes all other systems are reviewed and are negative Constitutional: Reports as [facility] Past Medical History Attestation statement: The following information was validated with the patient. Source: old records reviewed Medical History Miscarriage Heart murmur Social History Social History Patient Tobacco Use Status: Former Tobacco user Advance Directives: No Advance Directives Information Provided: Yes Do you have a plan to hurt others: No Plan Physical Exam ED Vital Signs: Vital Signs - 24 hr 04/24/24 06:06 04/24/24 10:17 Temperature 98.7 F 98.0 F Pulse Rate 107 H 69 Respiratory Rate 18 13 Blood Pressure 123/87 139/80 Pulse Oximetry 99 100 Oxygen Delivery Method Room Air Room Air BMI result Body Mass Index 24.0 Const General: cooperative, healthy appearing and no acute distress Orientation/consciousness: patient oriented x3 Limitations: no limitations HENMT Head: Yes normal to inspection and Yes atraumatic Ears: hearing grossly normal bilaterally General nose exam: Normal external nose present Face and sinus: Yes normal facial exam Eyes General: appearance normal, both eyes and all related structures EOM: EOMs intact bilaterally Neck Neck: Yes normal visual inspection and Yes no meningeal signs Resp Effort & Inspection: normal respiratory effort and no respiratory distress Auscultation: clear to auscultation bilaterally Cardio Rate: regular rate Heart sounds: S1 normal heart sound present and S2 normal heart sound present GI Inspection: Yes normal to inspection Palpation (GI): Soft to palpation, Tenderness to palpation present (GI) (Lower abdominal > RLQ) with no rebound tenderness, no guarding and not rigid General: Yes no CVA tenderness Back/Spine/Pelvis Back: no CVA tenderness Skin Rashes: no rashes Wounds: no wounds Neuro General: patient oriented x3, tone normal and no meningeal signs Cranial nerves: Yes CN's II-XII intact bilaterally Gait exam (Neuro): Normal gait present Extrem General: Yes normal to inspection Course Course Course Narrative: -1025--leukopenia 3.7. Acute on chronic. AST mildly elevated. Labs otherwise reassuring -viral studies negative -UA with WBCs and leuk esterase > will tx with Abx 1259--CT abdomen pelvis w IV con IMPRESSION: 1. Motion degradation as detailed. No acute findings in the abdomen or pelvis. The appendix is normal. 2. There is a 2.2 cm follicular cyst right ovary. 3. Nonobstructing 2 mm calculi in both kidneys. > on re-evaluation patient tearful due to increased anxiety from being in the emergency department. Discussed CT results. Reports mild symptomatic improvement since ED arrival. Will p.o. trial. Did offer ultrasound for further eval of cyst, although continued low suspicion for torsion or TOA w/ other assoc symptoms. Patient deferred ultrasound and would like to be discharged after p.o. trial. -patient tolerated p.o. without difficulty. No episodes of emesis since ED arrival. Patient requesting discharge >> Results discussed with patient including worrisome signs and symptoms and strict return precautions, and when to return to the emergency department. They verbalized understanding and feel safe for discharge at this time. Medical Decision Making Medical Decision Making [facility] Narrative: 24-year-old female with no significant past medical history presenting to the ED complaining of abdominal pain, nausea, vomiting, diarrhea x3 days. On exam initially tachycardic likely from pain, NAD, nontoxic appearing, abdomen is soft with lower > RLQ tenderness, no rebound or guarding, no CVAT. Concern for gastroenteritis vs viral illness vs food poisoning vs appendicitis or colitis/diverticulitis. Lower suspicion for renal stone/pyelo cholecystitis/lithiasis, pancreatitis or ovarian torsion at this time. Rule out metabolic abnormalities. Low suspicion for severe sepsis Plan: Labs, UA, CT AP, IVF, antiemetics, pain control, re-evaluate Please refer to course for remaining clinical decision making, interpretation of labs/imaging results, and discussions with consultants and/or family members. Differential Diagnosis Differential Diagnoses: The differential diagnosis associated with the presentation includes As above Admission/Observation Consideration of admission/observation: Escalation of care including admission/observation considered Lab Data [facility] Lab Attestation statement: I reviewed the patient's lab results. 04/24/24 06:22 04/24/24 06:22 Labs: Lab Results 04/24/24 04/24/24 Range/Units 06:22 08:23 WBC 3.7 L (4.8-10.8) X10*3/uL RBC 4.53 (4.20-5.50) X10*6/uL Hgb 14.1 (12.0-16.0) g/dl Hct 40.8 (37.0-47.0) % MCV 90.1 (80.0-98.0) fL MCH 31.1 (27.0-33.0) pg MCHC 34.6 (31.0-35.0) g/dl RDW 12.5 (11.0-16.0) % Plt Count 218 (160-400) X10*3/uL MPV 9.2 L (9.4-12.3) fL Immature Gran % (Auto) 0.3 (0.0-0.4) % Neut % (Auto) 45.4 (45-73) % Lymph % (Auto) 43.9 H (20-40) % [place] % (Auto) 8.8 (2-11) % Eos % (Auto) 0.8 (0-4) % Baso % (Auto) 0.8 (0-2) % Lymph # (Auto) 1.6 (1.2-4.9) X10*3/uL [place] # (Auto) 0.3 (0.1-1.2) X10*3/uL Eos # (Auto) 0.0 (0.0-0.4) X10*3/uL Baso # (Auto) 0.0 (0.0-0.2) X10*3/uL Abs Immat Gran (auto) 0.01 (0.00-0.03) X10*3/uL Absolute Neuts (auto) 1.7 L (2.0-8.3) x10*3/uL Absolute Nucleated RBC 0.000 (0.0-0.012) X10*3/uL Nucleated RBC % (auto) 0.0 (0.0-0.2) /100WBC Sodium 140 (135-145) mmol/L Potassium 4.2 (3.3-5.1) mmol/L Chloride 109 H (96-108) mmol/L Carbon Dioxide 22 (22-29) mmol/L Anion Gap 13 (12-20) BUN 8 L (9-16) mg/dL Creatinine 0.76 (0.5-1.4) mg/dL Estim Creat Clear Calc 96.8 Estimated GFR > 60 Random Glucose 93 (60-115) mg/dL Calcium 8.7 D (8.4-10.2) mg/dL Magnesium 2.2 (1.6-2.6) mg/dL Total Bilirubin 0.7 (0.0-1.0) mg/dL AST 44 H (5-31) U/L ALT 18 (0-31) U/L Alkaline Phosphatase 48 (39-117) U/L Total Protein 7.5 (6.5-8.0) g/dL Albumin 4.2 (3.5-5.0) g/dL Lipase 11 (8-78) U/L Urine Color Yellow Urine Appearance Clear Urine pH 6.0 (5.0-9.0) Ur Specific [place] 1.025 (1.005-1.025) Urine Protein Negative (Neg-Trace) mg/dL Urine Glucose (UA) Negative (Negative) mg/dL Urine Ketones Negative (Negative) mg/dL Urine Blood Negative (Negative) Urine Nitrite Negative (Negative) Ur Leukocyte Esterase Small (1+) H (Negative) Urine RBC 0-2 (0-2) /HPF Urine WBC 6-10 H (0-5) /HPF Ur Squamous Epith Cells 0-2 (0-2) /HPF Urine Bacteria None Seen (None Seen) Hyaline Casts 6-10 (0-2) /LPF Urine Test NEGATIVE (NEGATIVE) Influenza Type A (PCR) NEGATIVE (Negative) Influenza Type B (PCR) NEGATIVE (Negative) RSV RNA Qual (PCR) NEGATIVE (Negative) SARS-CoV-2 RNA (RT-PCR) NEGATIVE (Negative) Independent Interpretation I performed an independent interpretation of an: CT Scan Radiology Impression Discussion of test interpretation with radiology: I have reviewed the radiologist's reading. External Record Review External record reviewed: Inpatient record, Office record, Outpatient record, Prior outpatient labs, Prior outpatient radiology, Primary care record and Outside ED record Tests considered The following testing was considered but not selected: As above Prescription Management I considered prescription management with: Pain Medication Social Determinants Patient?s care significantly limited by Social Determinants of Health including: Other Social Determinant of Health Medications Administered Discontinued Medications Generic Name Dose Route Start Last Admin Trade Name Freq PRN Reason Stop Dose Admin Sodium Chloride 1,000 mls @ 999 mls/hr 04/24/24 09:00 04/24/24 09:41 Ns IV 04/24/24 10:00 999 mls/hr .Q1H1M JADE Administration Iohexol 85 ml 04/24/24 09:59 04/24/24 10:01 Iohexol 350 Mg/Ml 100 Ml Infus..Btl IV 04/24/24 10:00 85 ml ONCE ONE Administration Ketorolac Tromethamine 15 mg 04/24/24 08:50 04/24/24 09:41 Ketorolac Tromethamine 15 Mg/Ml Vial IVPUSH 04/24/24 08:51 15 mg ONCE ONE Administration Lorazepam 2 mg 04/24/24 12:31 04/24/24 12:40 Lorazepam 1 Mg Tablet PO 04/24/24 12:32 2 mg ONCE ONE Administration Ondansetron HCl 4 mg 04/24/24 08:46 04/24/24 09:41 Ondansetron Hcl 4 Mg/2 Ml Vial IVPUSH 04/24/24 08:47 4 mg ONCE ONE Administration Discharge Plan Discharge Clinical Impression: Abdominal pain, Nausea, vomiting, and diarrhea Patient Disposition: Home, Self-Care Instructions: Gastroenteritis (DC), Abdominal Pain (ED) Additional Instructions: Your blood work is reassuring. Your CT scan does not show any acute findings. 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 Prescriptions: No Action pyridoxine (vitamin B6) 25 mg tablet 25 mg PO BID PRN (Reason: nausea and vomiting) Qty: 30 0RF doxylamine succinate 25 mg tablet 25 mg PO BID PRN (Reason: nausea and vomiting) Qty: 30 0RF acetaminophen [Tylenol Extra Strength] 500 mg tablet 500 mg PO Q6H PRN (Reason: fever or pain) Qty: 30 0RF nitrofurantoin monohyd/m-cryst [Macrobid] 100 mg capsule 100 mg PO Q12H 5 Days Qty: 10 0RF Rx Instructions: must administer with a meal/food cephalexin 500 mg capsule 500 mg PO QID 7 Days Qty: 28 0RF Cipro HC 0.2-1 % drops,suspension 3 drp otic (ears) BID Qty: 10 0RF azithromycin 250 mg tablet See Rx Instructions .ROUTE .COMPLEX Qty: 6 0RF Rx Instructions: For 250 mg dose pack: take 500 mg today (day 1), then 250 mg for 4 days (days 2-5) benzonatate 200 mg capsule 200 mg PO TID PRN (Reason: cough) Qty: 20 0RF Ref[place]: [facility] [place] [facility] [place]] Print Language: Kiswahili
[2024-04-24] MEDS: LORazepam 1 MG TABLET 2 MG PO (12:40)
[2024-04-24 13:51] VITALS: BP 126/85; PULSE 69; RESP 13; TEMP 37; O2SAT 99
[2024-04-24 13:54] VITALS: BP 126/85; PULSE 69; RESP 13; TEMP 37; O2SAT 99
== END 2024-04-24 15:08 | disposition home or self-care (01) ==
PROVIDERS: Physician Assistant; Emergency Provider Emergency Medicine
DX: R10.9 Unspecified abdominal pain (principal); R11.2 Nausea with vomiting, unspecified; R19.7 Diarrhea, unspecified; Z79.899 Other long term (current) drug therapy; Z03.818 Encounter for observation for suspected exposure to other biological agents ruled out; R00.0 Tachycardia, unspecified
CPT/HCPCS: 0241U; 74177; 80053; 81001; 81025; 83690; 83735; 85025; 87086; 96361; 96374; 96375; 99284; J1885; J2405; Q9967

== ENCOUNTER → 2024-04-24 08:50 | Outpatient (BNV) | payer SELFPAY | PROVIDERS: Emergency Provider Emergency Medicine; Visit Provider Radiology Diagnostic Radiology | DX: R10.31 Right lower quadrant pain (principal) | CPT/HCPCS: 74177 ==

== ENCOUNTER 2024-06-04 14:01 | Outpatient (AMB) | payer OTHER, SELFPAY ==
[2024-06-04 14:08] VITALS: BP 112/60; BMI 24.0
--- NOTE | 2024-06-04 14:08 | MHC.OFFVIS ---
Vital Signs 06/04/24 14:08 Height 5 ft 4 in Weight 140 lb BMI 24.0 BP 112/60 Intake Visit Reasons: ER Follow up (Abdomen Pain) Miscellaneous Machine Operator Required: No Miscellaneous Machine Operator Services: Miscellaneous Machine Operator Present Information Interpreted: clinical only Neurosurgery Physician: Neurosurgery Physician Present Allergies No Known Allergies Allergy (Verified 06/04/24 14:10) Medication List - Last Reconciled 06/04/24 by Yaima Adams CNM metronidazole 500 mg PO BID Is last menstrual period known: Yes Last menstrual period: 05/30/24 HPI HPI ER Follow up (Abdomen Pain): Details: Patient is here as follow-up from emergency room where she was seen last month for abdominal pain and nausea and vomiting. That was felt to be gastrointestinal she had had a CT scan that she said showed a cyst so she does have questions about that. 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 Additionally she was evaluated for STIs somewhat recently and had trichomoniasis diagnosed through a urine test she is on the medication now the metronidazole. She has a prescription to give to her partner who she is not very sexually active with she was active with him in March and previous to that will last July.. This I discussed with her the importance of making sure that he is treated and that both of them use condoms or protection and avoid unsafe contact for minimum 3 weeks to ensure that there was no ping pong back and forth of lingering organisms. She gets regular periods she is in fact open to she has had 3 pregnancies her life 1 was a very early miscarriage that her period was late for and positive test and then she just got what appeared like a heavy period. The 2nd was 3-1/2 months and the fetus was quite formed and be last 1 was in 2020 and she said she was 5 months and she was told that in future pregnancies she would need a stitch in her cervix. So she is curious about that she said she was recommended to take multivitamins with folic acid at the emergency room and she is wondering if I can prescribe those so that they would be covered she is in fact open to . I did inform her that the birthing centers no longer open so we would not be able to provide her with the type of care she would need so her options would include [facility] and [facility]. PFSH Medical History Miscarriage Heart murmur Social History Patient Tobacco Use Status: Former Tobacco user Female Reproductive History Menstrual Age of Menarche: 11 Duration of menses: 6-7 days Date of last menstrual period: 05/30/24 control method: none Total pregnancies: 0 Date of last pap smear: 05/18/23 (abn.per patient) Physical Exam Vital Signs: Last Vital Signs BP 112/60 06/04/24 14:08 BMI result Body Mass Index 24.0 Results Reviewed Results Reviewed: Patient: Keely Harrington MR#: [id number] : 2000 Acct:[id number] Age/Sex: 24 / F ADM Date: 04/24/24 Loc: HO.ED Attending Dr: Ordering Physician: Miryam Crane Date of Service: 04/24/24 Procedure(s): CT abdomen pelvis w IV con Accession Number(s): [id number] cc: Physician,Unknown ; Miryam Crane~ Report Number: [id number]: Total DLP = 397.00 mGy-cm EXAMINATION: CT ABDOMEN AND PELVIS WITH CONTRAST CLINICAL INFORMATION: Right lower quadrant pain, nausea, vomiting, diarrhea. COMPARISON: 08/16/2023, 03/18/2022. TECHNIQUE: Multidetector volumetric images were obtained from the superior aspect of the liver through the pubic symphysis following administration 85 mL of Omnipaque 350 intravenous contrast. Sagittal and coronal reformatted images were obtained on the technologist's workstation. Oral contrast: No This CT examination was performed using dose optimization techniques as appropriate, variously including the following: *Automated exposure control *Adjustment of mA and/or kV according to patient size (this includes techniques or standardized protocols for targeted exams where dose is matched to indication/reason for exam; i.e. extremities or head) *Use of iterative reconstruction technique DLP = 397 mGy^cm FINDINGS: Moderate respiratory motion degradation in the mid aspect of the abdomen. This limits sensitivity of the study. LUNG BASES: The visualized lung bases are unremarkable. LIVER, GALLBLADDER, AND BILIARY TREE: The liver is normal in size, shape, and attenuation. No focal hepatic lesion or biliary ductal dilatation is present. The gallbladder is unremarkable with no evidence of radiopaque gallstones, gallbladder wall thickening, or obvious pericholecystic inflammatory changes. PANCREAS: Unremarkable. SPLEEN: Unremarkable. ADRENAL GLANDS: Unremarkable. KIDNEYS AND URETERS: The kidneys are normal in size, shape, and attenuation. No hydronephrosis, hydroureter, or obstructing calculi seen. There are 2 mm nonobstructing calculi in both kidneys. No perinephric stranding. BLADDER: Unremarkable. GASTROINTESTINAL TRACT: The small and large bowel are unremarkable. The appendix is normal. ABDOMINAL WALL: No significant hernia is appreciated. LYMPH NODES: Normal. VASCULAR: Unremarkable. PELVIC VISCERA: -There is a 2.2 cm follicular cyst in the right ovary. Left ovary is normal. Uterus and adnexal structures are normal. OSSEOUS STRUCTURES: Unremarkable. CT/CT abdomen pelvis w IV con IMPRESSION: 1. Motion degradation as detailed. No acute findings in the abdomen or pelvis. The appendix is normal. 2. There is a 2.2 cm follicular cyst right ovary. 3. Nonobstructing 2 mm calculi in both kidneys. Electronically signed by: Kamron Cotto MD 04/24/2024 12:44 PM [facility] Dictated By: Kamron Cotto MD Signed By: <Electronically signed by Kamron Cotto MD in OV> 04/24/24 1244 DD/ 0954 TD/TT: 04/24/24 1020 Orthopedic Technician: Assessment & Plan Assessment & Plan (1) Trichomoniasis: Code(s): A59.9 - Trichomoniasis, unspecified Category: Medical (2) Hx of abnormal cervical Pap smear: Code(s): Z87.42 - Personal history of other diseases of the female genital tract Category: Medical (3) Patient desires : Code(s): Z31.9 - Encounter for procreative management, unspecified Category: Medical (4) Prior poor obstetrical history in second trimester, antepartum: Comment: Patient lost a at 5 months in 2020. She was told she would need a cerclage in future pregnancies discussed need for care at a facility able to provide this-- 06/04/24. Code(s): O09.292 - Supervision of with other poor reproductive or obstetric history, second trimester Category: Medical Plan Patient is here as follow-up from emergency room where she was seen last month for abdominal pain and nausea and vomiting. That was felt to be gastrointestinal she had had a CT scan that she said showed a cyst so she does have questions about that. 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 Additionally she was evaluated for STIs somewhat recently and had trichomoniasis diagnosed through a urine test she is on the medication now the metronidazole. She has a prescription to give to her partner who she is not very sexually active with she was active with him in March and previous to that will last July.. This I discussed with her the importance of making sure that he is treated and that both of them use condoms or protection and avoid unsafe contact for minimum 3 weeks to ensure that there was no ping pong back and forth of lingering organisms. She gets regular periods she is in fact open to she has had 3 pregnancies her life 1 was a very early miscarriage that her period was late for and positive test and then she just got what appeared like a heavy period. The 2nd was 3-1/2 months and the fetus was quite formed and be last 1 was in 2020 and she said she was 5 months and she was told that in future pregnancies she would need a stitch in her cervix. So she is curious about that she said she was recommended to take multivitamins with folic acid at the emergency room and she is wondering if I can prescribe those so that they would be covered she is in fact open to . I did inform her that the birthing centers no longer open so we would not be able to provide her with the type of care she would need so her options would include [facility] and [facility]. Discussed that it would be really helpful to establish care with whoever she would be seen early on so that they could evaluate her and decide if a cerclage was the best plan at that time and plan for appropriately at the right time. I offered at her request to send a prescription for vitamins and sent it to her prescription at [facility]. She is going to be following through with test of cure for the trichomoniasis and her scheduled Pap smear at [facility] as planned. Discussed that if she needed to be referred for colposcopy or any other treatment she would need to be seen at the main office at the hospital by the [employer] as I do not do colposcopies or surgery. Reviewed general health and self-care pre . 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 at [facility] for follow-up of her Pap and the trich Medications: New PNV,calcium [id number] acid 27 mg iron- 1 mg ( Vitamins Plus Low Iron) 1 tab PO DAILY 100 tabs 0RF Discontinued doxylamine succinate Discontinued Reason: Patient Completed Course 25 mg PO BID PRN 30 tabs 0RF nausea and vomiting pyridoxine (vitamin B6) Discontinued Reason: Patient Completed Course 25 mg PO BID PRN 30 tabs 0RF nausea and vomiting nitrofurantoin monohyd/m-cryst 100 mg (Macrobid) must administer with a meal/food Discontinued Reason: Patient Completed Course 100 mg PO Q12H 5 days 10 caps 0RF acetaminophen (Tylenol Extra Strength) Discontinued Reason: Patient Completed Course 500 mg PO Q6H PRN 30 tabs 0RF fever or pain ciprofloxacin-hydrocortisone 0.2-1 % (Cipro HC) Discontinued Reason: Patient Completed Course 3 drps otic (ears) BID 10 mL 0RF azithromycin Discontinued Reason: Patient Completed Course For 250 mg dose pack: take 500 mg today (day 1), then 250 mg for 4 days (days 2-5) 6 tabs 0RF cefuroxime axetil Discontinued Reason: Patient Completed Course 250 mg PO BID 7 days 14 tabs 0RF cephalexin Discontinued Reason: Patient Completed Course 500 mg PO QID 7 days 28 caps 0RF benzonatate Discontinued Reason: Patient Completed Course 200 mg PO TID PRN 20 caps 0RF cough Coding Level of Care Code New Pt Level 3 (38904) Diagnoses Trichomoniasis A59.9 Hx of abnormal cervical Pap smear Z87.42 Patient desires Z31.9 Prior poor obstetrical history in second trimester, antepartum O09.292 Time Spent (min) 35 Comment 100% spent reviewing her history and health concerns and giving advice for care going forw
== END 2024-06-04 16:05 | disposition home or self-care (01) ==
PROVIDERS: Visit Provider Advanced Practice Midwife
DX: A59.9 Trichomoniasis, unspecified (principal); Z87.42 Personal history of other diseases of the female genital tract; Z31.9 Encounter for procreative management, unspecified; O09.292 Supervision of pregnancy with other poor reproductive or obstetric history, second trimester
CPT/HCPCS: 99203

== ENCOUNTER → 2024-06-04 14:01 | Outpatient (BNVA) | payer OTHER, SELFPAY | PROVIDERS: Visit Provider Advanced Practice Midwife | DX: O09.292 Supervision of pregnancy with other poor reproductive or obstetric history, second trimester (principal); O26.892 Other specified pregnancy related conditions, second trimester; A59.9 Trichomoniasis, unspecified; Z87.42 Personal history of other diseases of the female genital tract | CPT/HCPCS: 99202 ==

== ENCOUNTER 2024-06-07 11:02 | Emergency (ER) | payer OTHER, SELFPAY ==
[2024-06-07 11:13] VITALS: BP 150/100; PULSE 99; RESP 18; TEMP 36.7; O2SAT 97; BMI 23.3
--- NOTE | 2024-06-07 11:13 | ED.GENADULT ---
HPI - General Adult General Chief complaint: Animal Bite Stated complaint: R leg dog bite Time Seen by Provider: 06/07/24 12:49 Source: patient Mode of arrival: ambulatory Limitations: no limitations History of Present Illness ED Provider: Abbi Lyle PA-C HPI narrative: Patient is a 24 year old assigned female at with no reported medical history presenting to the emergency department today with a right upper leg dog bite. 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 Patient states that the toy packer of the dog was able to provide proof of 3 years rabies vaccination performed in 2022. Patient states that she does not know when her last tetanus shot was. Patient denies any dizziness, lightheadedness, abdominal pain, nausea, vomiting, fever, chills, blurry vision, double vision, loss of vision, chest pain, difficulty breathing, shortness of breath, back pain, night sweats, pain with urination, increased urinary frequency, increased urinary urgency, blood in her urine or stool, syncope or a near syncopal episode, bowel incontinence, bladder incontinence, or any other complaints at this time. Location: right and lower extremity Relieving factors: none Exacerbating factors: none Associated symptoms: denies other symptoms Treatments prior to arrival: none Related Data Home Medications ?Medication ?Instructions ?Recorded ?Confirmed metronidazole 500 mg tablet 500 mg PO BID 06/04/24 06/04/24 Previous Rx's ?Medication ?Instructions ?Recorded vitamin with calcium 1 tab PO DAILY #100 tabs 06/04/24 no.72-iron 27 mg-folic acid 1 mg tablet ( Vitamins Plus Low Iron) amoxicillin 875 mg-potassium 1 tab PO BID 10 days #20 tabs 06/07/24 clavulanate 125 mg tablet Allergies Allergy/AdvReac Type Severity Reaction Status Date / Time No Known Allergies Allergy Verified 06/07/24 11:17 Review of Systems Constitutional: Constitutional: Reports no additional constitutional complaints, Denies chills, Denies fever(s) and Denies night sweats Eyes: Eyes: Reports no additional eye complaints, Denies blurry vision, Denies change in vision, Denies diplopia, Denies eye discharge, Denies loss of vision and Denies eye pain ENT: Denies dizziness Cardiovascular: Cardiovascular: Reports no additional cardiovascular complaints, Denies chest pain, Denies lightheadedness, Denies Loss of Consciousness and Denies dyspnea Respiratory: Respiratory: Reports no additional respiratory complaints and Denies dyspnea Gastrointestinal: Gastrointestinal: Reports no additional gastrointestinal complaints, Denies abdominal pain, Denies melena, Denies hematochezia, Denies change in bowel habits and Denies change in stool character Genitourinary: Genitourinary: Denies hematuria, Denies urinary frequency, Denies dysuria, Denies urinary incontinence, Denies urinary hesitancy and Denies urinary urgency Musculoskeletal: Musculoskeletal: Reports no additional musculoskeletal complaints, Denies numbness and Denies tingling Comments: right upper leg dog bite Neurologic: Denies dizziness, Denies loss of vision, Denies numbness and Denies tingling Psychiatric: Psychiatric: Reports no additional psychiatric complaints Endocrine: Endocrine: Reports no additional endocrine complaints Hematologic/Lymphatic: Hematologic/Lymphatic: Reports no additional hematologic/lymphatic complaints Allergic/Immunologic: Allergic/Immunologic: Reports no additional allergic/immunologic complaints PMFSH Past Medical History Attestation statement: The following information was validated with the patient. Source: old records reviewed and nursing notes reviewed Medical History Miscarriage Heart murmur Social History Social History Patient Tobacco Use Status: Former Tobacco user Advance Directives: No Advance Directives Information Provided: No Do you have a plan to hurt others: No Plan Physical Exam ED Vital Signs: Vital Signs - 24 hr 06/07/24 11:13 06/07/24 13:10 Temperature 98.1 F 98.1 F Pulse Rate 99 99 Respiratory Rate 18 18 Blood Pressure 150/100 H 150/100 H Pulse Oximetry 97 97 Oxygen Delivery Method Room Air Room Air BMI result Body Mass Index 23.3 Const General: cooperative, no acute distress, alert and awake Nutritional Appearance: well nourished Orientation/consciousness: patient oriented x3 Limitations: no limitations HENMT Head: Yes normal to inspection and Yes atraumatic Ears: hearing grossly normal bilaterally and external ears normal General nose exam: Normal external nose present, no nasal discharge noted and no epistaxis Face and sinus: Yes normal facial exam, No abrasion and No laceration Mouth: Normal oral and palatal mucosa present, no drooling and no muffled voice Eyes General: appearance normal, both eyes and all related structures Periorbital: periorbital findings normal Eyelids: Yes eyelids normal Conjunctivae: conjunctivae normal Pupils: Equal, round and reactive pupils present EOM: EOMs intact bilaterally Neck Neck: Yes normal visual inspection, Yes full ROM and Yes no lymphadenopathy Chest Chest palpation & inspection: normal inspection of the chest Resp Effort & Inspection: normal respiratory effort and able to speak in complete sentences GI Inspection: Yes normal to inspection Neuro General: patient oriented x3, moves all extremities and CN's II-XI intact bilaterally Cranial nerves: Yes Equal, round and reactive pupils present Cognition (Neuro): normal cognition Extrem General: Yes full ROM and Yes capillary refill normal Knee images: 1. small puncture wound with no active bleeding Psych Appearance: grossly normal Mental Status: mental status grossly normal Affect: normal affect Attitude: cooperative Thought process: Normal thought process present Thought content: Normal thought content present Insight: Good insight present (Psych) Course Course Course Narrative: RME performed by Abbi Lyle PA-C. Patient is a 24 year old assigned female at presenting to the emergency department with a right upper leg dog bite. Patient states that this was not a known dog to her and she is unsure of the dogs rabies status and her tetanus status. Detailed physical exam and review of systems are deferred to the primary care nurse practitioner. Patient placed back in the waiting room pending room availability. Medications Administered Discontinued Medications Generic Name Dose Route Start Last Admin Trade Name Freq PRN Reason Stop Dose Admin Diphtheria/Tetanus/Acell Pertussis 0.5 ml 06/07/24 11:17 06/07/24 12:59 Diphth,Pertus(Acell),Tet Adult 0.5 Ml Syringe IM 06/07/24 11:18 0.5 ml .ONCE ONE Administration Medical Decision Making Medical Decision Making MDM Narrative: Patient is a 24 year old assigned female at with no reported medical history presenting to the emergency department today with a right upper leg dog bite. Patient's physical exam was as noted in the physical exam portion of this note. I explained my physical exam findings to the patient. I answered all questions asked by the patient. Patient was given hospital pants to change into out of her jeans. Once the patient was changed, I thoroughly washed / rinsed the wound with an iodine / saline mixture and dressed the wound with a nonstick gauze and web roll. Patient's PMS was intact prior to and after cleaning and dressing of the wound. Patient's wound was not gaping enough to need manual closure or close approximation. Patient was brought up to date on her tetanus status. I stressed the importance of the patient taking her medication as directed (either prescribed or as the over the counter packaging recommends). I stressed the importance of the patient following up with her primary care provider. I stressed the importance of the patient returning to the emergency department immediately if her symptoms were to worsen or if she were to develop any dizziness, shortness of breath, difficulty breathing, chest pain, blurry vision, loss of vision, nausea, vomiting, abdominal pain, fever, chills, back pain, or any other complaints. Patient verbalized agreement and understanding with this treatment plan and discharge. Differential Diagnosis Differential Diagnoses: The differential diagnosis associated with the presentation includes Dog bite Puncture wound Admission/Observation Consideration of admission/observation: Escalation of care including admission/observation considered Patient would have been admitted to the hospital had her work up had any findings where hospital admission was appropriate and her clinical presentation warranted hospital admission. Prescription Management I considered prescription management with: Antibiotic (patient prescribed a prophylactic antibiotic given the mechanism of injury) Discharge Plan Discharge Clinical Impression: Dog bite Patient Disposition: Home, Self-Care Instructions: Animal Bite (ED) Additional Instructions: Perform daily wound checks and dressing changes. Take your antibiotic as prescribed. Follow up with your primary care provider. Return to the emergency department immediately if your symptoms worsen or if you develop any dizziness, shortness of breath, difficulty breathing, chest pain, blurry vision, loss of vision, nausea, vomiting, abdominal pain, fever, chills, back pain, or any other complaints. Prescriptions: New amoxicillin-pot clavulanate 875-125 mg tablet 1 tab PO BID 10 Days Qty: 20 0RF No Action metronidazole 500 mg tablet 500 mg PO BID Vitamin Plus Low Iron 27 mg iron- 1 mg tablet 1 tab PO DAILY Qty: 100 0RF Referrals: [facility] [Provider Group] (Call to establish and follow up with a primary care provider. If you already have a primary care provider, please follow up with them.) [facility] [Provider Group] (Call to establish and follow up with a primary care provider. If you already have a primary care provider, please follow up with them.) [facility] Primary [facility] [Provider Group] (Call to establish and follow up with a primary care provider. If you already have a primary care provider, please follow up with them.) [facility] Primary Edgar [facility] [Provider Group] (Call to establish and follow up with a primary care provider. If you already have a primary care provider, please follow up with them.) Interventions: ED Discharge Assessment Last Done: 06/07/24 13:10 Discharge Date/Time: 06/07/24 13:11 Print Language: Japanese
[2024-06-07] MEDS: Diphth,Pertus(ACell),Tet Adult 0.5 ML SYRINGE IM (12:59)
[2024-06-07 13:10] VITALS: BP 150/100; PULSE 99; RESP 18; TEMP 36.7; O2SAT 97
== END 2024-06-07 13:11 | disposition home or self-care (01) ==
PROVIDERS: Emergency Provider Emergency Medicine
DX: S71.131A Puncture wound without foreign body, right thigh, initial encounter (principal); W54.0XXA Bitten by dog, initial encounter; Y93.89 Activity, other specified; Y92.017 Garden or yard in single-family (private) house as the place of occurrence of the external cause; Y99.9 Unspecified external cause status; Z23 Encounter for immunization
CPT/HCPCS: 90471; 90715; 99282; 99284

== ENCOUNTER 2024-12-17 07:19 | Emergency (ER) | payer SELFPAY ==
[2024-12-17 07:24] VITALS: BP 142/93; PULSE 85; RESP 18; TEMP 36.9; O2SAT 99; BMI 22.3
[2024-12-17 07:59] LABS: IDNOW Serial# 55D5AD1C; Strep A Nucleic Acid Negative (Negative)
--- NOTE | 2024-12-17 08:28 | ED.GENADULT ---
HPI - General Adult General Chief complaint: General Medical Stated complaint: throat pain, stomach ache Time Seen by Provider: 12/17/24 08:03 Source: patient Mode of arrival: ambulatory Limitations: no limitations History of Present Illness ED Provider: Kendy Marshall PA-C HPI narrative: Patient seeks medical attention in the emergency department today for evaluation of sore throat for the last 2 days. She reports some nasal congestion but otherwise is denying any coughing fevers or chills she has no headache or dizziness. Reports some ear pressure but no hearing loss or tinnitus. Has no abdominal discomfort or shortness of breath or nausea or vomiting no diarrhea no body aches joint pain or rashes. She is able tolerate p.o. fluids and void regularly. She has not taken anything for her symptoms. She denies any concern for STIs and has no known sick contacts. No changes to appetite. Related Data Home Medications ?Medication ?Instructions ?Recorded ?Confirmed metronidazole 500 mg tablet 500 mg PO BID 06/04/24 06/04/24 Previous Rx's ?Medication ?Instructions ?Recorded vitamins with calcium 1 tab PO DAILY #100 tabs 06/04/24 no.72-iron 27 mg-folic acid 1 mg tablet ( Vitamins Plus Low Iron) amoxicillin 875 mg-potassium 1 tab PO BID 10 days #20 tabs 06/07/24 clavulanate 125 mg tablet lidocaine HCl 2 % mucosal solution 5 ml mucous membrane QID PRN pain 12/17/24 (Lidocaine Viscous) #100 mL Allergies Allergy/AdvReac Type Severity Reaction Status Date / Time No Known Allergies Allergy Verified 12/17/24 07:27 Review of Systems Review of Systems: Yes all other systems are reviewed and are negative [facility] Past Medical History Attestation statement: The following information was validated with the patient. Source: old records reviewed and nursing notes reviewed Medical History Miscarriage Heart murmur Social History Social History Unable to assess alcohol history related to: Unknown Patient Tobacco Use Status: Former Tobacco user Smoked in Last 30 Days: No Use of substances other than those prescribed or required for medical reasons: Unknown Advance Directives: No Advance Directives Information Provided: Yes Do you have a plan to hurt others: No Plan Physical Exam ED Exam Exam: General: Appears in no acute distress, appears well nourished body habitus is normal, appears stated age. No septic or ill-appearing. Vitals reviewed normal, PMH/Social and Surgical hx reviewed including allergies and current medications. - Head: Normocephalic, no obvious trauma or skin lesions noted. Eyes: EOMI, conjunctiva and sclera clear no discharge ENMT: moist oral mucosa, no oral lesions uvula is midline no trismus slight clear postnasal drip, patient with whispered voice however when asked to use her regular voice no phonation abnormalities noted, bilateral serous so I am noted with air-fluid levels on the right side only hearing intact ear canal clear no edema erythema noted no bulging of the tympanic membrane, bilateral nasal turbinates are edematous and purple tinted no discharge Neck: trachea midline, no lymphadenopathy Cardiovascular: peripheral perfusion normal, Regular heart rate regular rhythm Respiratory: no respiratory distress lungs clear to auscultation bilaterally Abdomen: nondistended Extremities: warm and moving without difficulty Psych: Cooperative Neuro: Alert and oriented. Vital Signs: Vital Signs - 24 hr 12/17/24 07:24 Temperature 98.4 F Pulse Rate 85 Respiratory Rate 18 Blood Pressure 142/93 H Pulse Oximetry 99 Oxygen Delivery Method Room Air BMI result Body Mass Index 22.3 Medical Decision Making Medical Decision Making MDM Narrative: Intermittent mild sxs of scratchy voice. Not likely bacterial sinusitis given pale edematous nasal turbinates and lack of fevers. Posterior pharynx clear, centor criteria 0, strep is negative..Plan to trial nasal steroid, oral antihistamines and allergen avoidance. Consider follow up with PCP/emt i/99/ENT if symptoms persist. No history of immunocompromise. Nontoxic appearance. Patient euvolemic with no trismus. No airway compromise. Able to tolerate PO. Given History and Exam I have low suspicion for this presentation being caused by [employer]IST, RPA, Ludwigs, Epiglottitis or Bacterial Tracheitis, EBV, acute HIV, Strep throat. e Disposition: Discharge home with prompt outpatient PCP follow up; return precautions discussed. Differential Diagnosis Differential Diagnoses: The differential diagnosis associated with the presentation includes allergic rhinitis laryngitis/pharyngitis strep/ tonsillitis AOM/AOE viral URI Admission/Observation Consideration of admission/observation: Escalation of care including admission/observation considered Patient would have been admitted to the hospital had her work up had any findings where hospital admission was appropriate and her clinical presentation warranted hospital admission. Lab Data MDM Lab Attestation statement: I reviewed the patient's lab results. Labs: Lab Results 12/17/24 12/17/24 Range/Units 07:30 08:02 Influenza Type A (PCR) NEGATIVE (Negative) Influenza Type B (PCR) NEGATIVE (Negative) RSV RNA Qual (PCR) NEGATIVE (Negative) SARS-CoV-2 RNA (RT-PCR) NEGATIVE (Negative) S. pyogenes GrpA LEILA Negative (Negative) Tests considered The following testing was considered but not selected: Did have considered chest x-ray had patient had any cough or if her lung sounds were abnormal. We will also have consider soft tissue x-ray neck had there were any concerns of globus sensation or foreign body aspiration. Prescription Management I considered prescription management with: Pain Medication and Antibiotic Social Determinants Patient?s care significantly limited by Social Determinants of Health including: Other Social Determinant of Health Discharge Plan Discharge Clinical Impression: Acute laryngitis, Acute serous otitis media, Allergic rhinitis Patient Disposition: Home, Self-Care Instructions: Fluid In The Ear (Serous Otitis Media) (ED), Postnasal Drip (DC) Additional Instructions: You were seen in the emergency department today due to a sore throat and stomach discomfort. You tested negative for strep or COVID flu is pending. You have bilateral ear effusions which are clear in nature no evidence of middle or external ear infection me see this in cases and viruses as well as seasonal allergies. This in turn will cause postnasal drip and an irritated throat and sometimes loss of voice known as laryngitis for which you have. You also have evidence of allergic rhinitis on exam by evidence of your swollen nasal turbinates with no redness or discharge. No infection of the sinuses. Please use Flonase [id number] twice a day until improved and then go down to once a day for. the next several weeks Please also purchase an [id number] antihistamine and use that twice a day also until improved for the next several weeks and then go down to once a day. Advised continued voice rest as well warm drinks such as tea and honey. Should you experience any difficulty breathing or worsening of symptoms your welcome to return back to emergency department. Significant sedation and impairment of performance (eg, fine motor skills, driving skills, and reaction times) occur in more than 20 percent of patients. Anticholinergic side effects include dry mouth, diplopia, blurred vision, urinary retention, or vaginal dryness. This is most prominent in Benadryl. Benadryl (Diphenhydramine): Adults and Children 12 years and older: 25 to 50 mg every 4 to 6 hours as needed. Cetirizine (Zyrtec): Adults and Children 12 years and older: 10 to 20 mg twice daily as needed Claritin (loratidine) Adults and children 6 years and older: 10 -20 mg once daily as needed ( twice daily in adults if needed) Ayde (fexofedadine) Adults and Children ages 12 and older: 180 mg daily as needed (adults may be twice a day) Prescriptions: New lidocaine HCl [Lidocaine Viscous] 2 % solution 5 ml mucous membrane QID PRN (Reason: pain) Qty: 100 0RF Rx Instructions: swish and swallow No Action amoxicillin-pot clavulanate 875-125 mg tablet 1 tab PO BID 10 Days Qty: 20 0RF metronidazole 500 mg tablet 500 mg PO BID Vitamin Plus Low Iron 27 mg iron- 1 mg tablet 1 tab PO DAILY Qty: 100 0RF Referrals: Physician,None [Primary Care Provider, Medical] Stand Alone Forms: Work/School Release Discharge Date/Time: 12/17/24 08:51 Print Language: Armenian
[2024-12-17 09:00] LABS: Resp Syncy Virus RNA Qual PCR NEGATIVE (Negative); SARS COV2 PCR INHOUSE NEGATIVE (Negative)
== END 2024-12-17 08:51 | disposition home or self-care (01) ==
PROVIDERS: Emergency Provider Emergency Medicine Emergency Medical Services
DX: J04.0 Acute laryngitis (principal); R07.0 Pain in throat; R09.81 Nasal congestion; R05.9 Cough, unspecified; Z79.899 Other long term (current) drug therapy; Z03.818 Encounter for observation for suspected exposure to other biological agents ruled out
CPT/HCPCS: 87637; 87651; 99283; 99284

== ENCOUNTER 2024-12-26 04:22 | Emergency (ER) | payer SELFPAY ==
[2024-12-26 04:24] VITALS: BP 130/77; PULSE 86; RESP 18; TEMP 36.9; O2SAT 98; BMI 21.2
[2024-12-26 04:37] VITALS: BP 129/83; PULSE 74; RESP 16; TEMP 36.9; O2SAT 97
--- NOTE | 2024-12-26 04:55 | ED_ITS ---
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 A week before that she was seen for reports of laryngitis. No fevers or chills reported, does not feel she is . Related Data Home Medications ?Medication ?Instructions ?Recorded ?Confirmed metronidazole 500 mg tablet 500 mg PO BID 06/04/24 Previous Rx's ?Medication ?Instructions ?Recorded vitamins with calcium 1 tab PO DAILY #100 tab s 06/04/24 no.72-iron 27 mg-folic acid 1 mg tablet ( Vitamins Plus Low Iron) amoxicillin 875 mg-potassium 1 tab PO BID 10 days #20 tabs 06/07/24 clavulanate 125 mg tablet lidocaine HCl 2 % mucosal solution 5 ml mucous membran e QID PRN pain 12/17/24 (Lidocaine Viscous) #100 mL famotidine 20 mg tablet 20 mg PO BEDTIME #30 tabs ondansetron 4 mg disintegrating 4 mg PO Q8H PRN nausea and 12/26/24 tablet vomiting #4 tabs sucralfate 1 gram tablet (Carafate) 1 g PO Q6H 7 days #28 tabs 12/26/24 Allergies Allergy/AdvReac Type Severity Reaction Status Date / Time No Known Allergies Allergy Verified 12/26/24 04:26 Review of Systems Constitutional: Reports as per [facility] Past Medical History Medical History Miscarriage Heart murmur Social History Social History Unable to assess alcohol history related to: Unknown Patient Tobacco Use Status: Former Tobacco user Smoked in Last 30 Days: Yes Use of substances other than those prescribed or required for medical reasons: Yes Substance Use Type: Marijuana Advance Directives: No Advance Directives Information Provided: Yes Do you have a plan to hurt others: No Plan Patient : No Physical Exam ED Vital Signs: Vital Signs - 24 hr 12/26/24 04:24 12/26/24 04:37 Temperature 98.4 F 98.5 F Pulse Rate 86 74 Respiratory Rate 18 16 Blood Pressure 130/77 129/83 Pulse Oximetry 98 97 Oxygen Delivery Method Room Air Room Air BMI result Body Mass Index 21.2 Const Other: * Gen: ?Overall well-appearing patient * HEENT: PERRLA, no evidence for otitis media * CV: RRR, no obvious murmurs appreciated * Resp: ?No wheezing rales rhonchi no stridor moving air well * Abd: ?Bowel sounds are present, minimal epigastric tenderness no rebound no rigidity negative Arias's * MSK: FROM, strength 5/5 all extremities * Skin: Warm, dry, intact, * Neuro: ?Alert and oriented x3, moving upper and lower extremities symmetrically, no obvious facial asymmetry noted Medical Decision Making Medical Decision Making [facility] Narrative: 5:01 AM 12/26/2024 (Dr. Breezy Navas): Overall well-appearing patient, presenting with what sounds like epigastric discomfort but also then reporting diarrhea for the past 3 days, potential sick contacts at work, reassuring physical examination she has a minimal tenderness in the epigastric area, I will workup for biliary and pancreatic pathology, symptomatic control with oral medications re-evaluation anticipating discharge. Differential Diagnosis Differential Diagnoses: The differential diagnosis associated with the presentation includes (Cholecystitis, pancreatitis, hepatitis, gastritis, cholangitis, choledocholithiasis, SBO, ACS) Admission/Observation Consideration of admission/observation: Escalation of care including admission/observation considered Lab Data [facility] Lab Attestation statement: I reviewed the patient's lab results. 12/26/24 05:16 12/26/24 05:16 Labs: Lab Results 12/26/24 Range/Units 05:16 WBC 3.9 L (4.8-10.8) X10*3/uL RBC 4.13 L (4.20-5.50) X10*6/uL Hgb 13.1 (12.0-16.0) g/dl Hct 36.7 L (37.0-47.0) % MCV 88.9 (80.0-98.0) fL MCH 31.7 (27.0-33.0) pg MCHC 35.7 H (31.0-35.0) g/dl RDW 12.7 (11.0-16.0) % Plt Count 220 (160-400) X10*3/uL MPV 9.1 L (9.4-12.3) fL Immature Gran % (Auto) 0.3 (0.0-0.4) % Neut % (Auto) 52.8 (45-73) % Lymph % (Auto) 36.3 (20-40) % Dolores % (Auto) 9.6 (2-11) % Eos % (Auto) 0.5 (0-4) % Baso % (Auto) 0.5 (0-2) % Lymph # (Auto) 1.4 (1.2-4.9) X10*3/uL Dolores # (Auto) 0.4 (0.1-1.2) X10*3/uL Eos # (Auto) 0.0 (0.0-0.4) X10*3/uL Baso # (Auto) 0.0 (0.0-0.2) X10*3/uL Abs Immat Gran (auto) 0.01 (0.00-0.03) X10*3/uL Absolute Neuts (auto) 2.0 (2.0-8.3) x10*3/uL Absolute Nucleated RBC 0.000 (0.0-0.012) X10*3/uL Nucleated RBC % (auto) 0.0 (0.0-0.2) /100WBC Sodium 140 (135-145) mmol/L Potassium 3.9 (3.3-5.1) mmol/L Chloride 107 (96-108) mmol/L Carbon Dioxide 24 (22-29) mmol/L Anion Gap 13 (12-20) BUN 11 (9-16) mg/dL Creatinine 0.84 (0.5-1.4) mg/dL Estim Creat Clear Calc 87.6 Estimated GFR > 60 Random Glucose 77 (60-115) mg/dL Calcium 8.9 (8.4-10.2) mg/dL Total Bilirubin 0.6 (0.0-1.0) mg/dL AST 24 (5-31) U/L ALT 19 (0-31) U/L Alkaline Phosphatase 45 (39-117) U/L Total Protein 6.9 (6.5-8.0) g/dL Albumin 4.2 (3.5-5.0) g/dL Lipase 11 (8-78) U/L Beta HCG, Quant < 2 mIU/mL Prescription Management I considered prescription management with: Antibiotic Medications Administered Discontinued Medications Generic Name Dose Route Start Last Admin Trade Name Freq PRN Reason Stop Dose Admin Al Hydroxide/Mg Hydroxide 30 ml 12/26/24 04:56 12/26/24 05:05 Magnesium Hydrox/Alum Hydrox 30 Ml Oral.Susp PO 12/26/24 04:57 30 ml ONCE ONE Administration Belladonna Alkaloids/Phenobarbital 10 ml 12/26/24 04:56 12/26/24 05:05 Phenobarb/Hyoscy/Atropine/Scop 10 Ml Elixir PO 12/26/24 04:57 10 ml ONCE ONE Administration Famotidine 20 mg 12/26/24 04:56 12/26/24 05:05 Famotidine 20 Mg Tablet PO 12/26/24 04:57 20 mg ONCE ONE Administration Ondansetron HCl 4 mg 12/26/24 04:56 12/26/24 05:05 Ondansetron Odt 4 Mg Tab.Rapdis TRANSLINGU 12/26/24 04:57 4 mg ONCE ONE Administration Discharge Plan Discharge Clinical Impression: Epigastric abdominal pain, Nausea & vomiting Patient Disposition: Home, Self-Care Additional Instructions: Your blood work is reassuring there was no evidence for dehydration and Take famotidine 20 mg before bedtime, ondansetron 4 mg every 8 hours needed for nausea and vomiting, Carafate 1 pill 20 minutes before any meals and as I discussed with the you I would avoid any caffeine, spicy, or greasy foods, I would even avoid any fresh fruits or vegetables or juices for now, but stay well hydrated, soup with steamed vegetables/meat/bone broth etc, worsening issues concerns come back to the ER Prescriptions: New ondansetron 4 mg tablet,disintegrating 4 mg PO Q8H PRN (Reason: nausea and vomiting) Qty: 4 0RF sucralfate [Carafate] 1 gram tablet 1 g PO Q6H 7 Days Qty: 28 0RF famotidine 20 mg tablet 20 mg PO BEDTIME Qty: 30 0RF No Action amoxicillin-pot clavulanate 875-125 mg tablet 1 tab PO BID 10 Days Qty: 20 0RF lidocaine HCl [Lidocaine Viscous] 2 % solution 5 ml mucous membrane QID PRN (Reason: pain) Qty: 100 0RF Rx Instructions: swish and swallow metronidazole 500 mg tablet 500 mg PO BID Vitamin Plus Low Iron 27 mg iron- 1 mg tablet 1 tab PO DAILY Qty: 100 0RF Stand Alone Forms: Work/School Release Print Language: Chinese
[2024-12-26] MEDS: PHENobarb/Hyoscy/Atropine/Scop 10 ML ELIXIR PO (05:05)
[2024-12-26] MEDS: Magnesium Hydrox/Alum Hydrox 30 ML ORAL.SUSP PO (05:05)
[2024-12-26 05:22] LABS: MANUAL DIFF FLAG NO
[2024-12-26 05:23] LABS: Hematocrit 36.7 % (37.0-47.0); Hemoglobin 13.1 g/dl (12.0-16.0); Imm Gran Abs Auto 0.01 X10*3/uL (0.00-0.03); Imm Gran Pct Auto 0.3 % (0.0-0.4); Lymphocytes Absolute Auto 1.4 X10*3/uL (1.2-4.9); Mean Corpuscular HGB Conc 35.7 g/dl (31.0-35.0); Mean Corpuscular Hemoglobin 31.7 pg (27.0-33.0); Mean Corpuscular Volume 88.9 fL (80.0-98.0); NRBC Abs Auto 0.000 X10*3/uL (0.0-0.012); NRBC Pct Auto 0.0 /100WBC (0.0-0.2); Platelet Count 220 X10*3/uL (160-400); Red Blood Count 4.13 X10*6/uL (4.20-5.50); White Blood Count 3.9 X10*3/uL (4.8-10.8)
[2024-12-26 05:36] LABS: Alanine Aminotransferase 19 U/L (0-31); Albumin Level 4.2 g/dL (3.5-5.0); Alkaline Phosphatase 45 U/L (39-117); Anion Gap 13 (12-20); Aspartate Amino Transferase 24 U/L (5-31); Blood Urea Nitrogen 11 mg/dL (9-16); Calcium 8.9 mg/dL (8.4-10.2); Carbon Dioxide 24 mmol/L (22-29); Chloride 107 mmol/L (96-108); Creatinine Clr Calc Pharmacy 87.6; Estimated Glomerular Filt Rate > 60; Lipase 11 U/L (8-78); Potassium 3.9 mmol/L (3.3-5.1); Sodium 140 mmol/L (135-145); Total Protein 6.9 g/dL (6.5-8.0)
[2024-12-26 06:32] VITALS: BP 121/81; PULSE 80; RESP 16; TEMP 36.9; O2SAT 99
[2024-12-26 06:40] VITALS: BP 121/81; PULSE 80; RESP 16; TEMP 36.9; O2SAT 99
== END 2024-12-26 06:41 | disposition home or self-care (01) ==
PROVIDERS: Emergency Provider Emergency Medicine
DX: R10.13 Epigastric pain (principal); R11.2 Nausea with vomiting, unspecified; R10.2 Pelvic and perineal pain; Z79.899 Other long term (current) drug therapy
CPT/HCPCS: 36415; 80053; 83690; 84702; 85025; 99283; 99284